=== PATIENT | male | born 1965 | race Caucasian/White ===

== ENCOUNTER 2017-02-23 02:13 | Emergency (ER) | payer SELFPAY ==
[2017-02-23 02:13] VITALS: BMI 28.5
[2017-02-23 02:26] VITALS: BP 147/96; PULSE 116; RESP 16; TEMP 98.7; O2SAT 96
--- NOTE | 2017-02-23 02:50 | ED PDOC ---
HPI: General Adult Time Seen by Provider: 02/23/17 02:29 Chief Complaint (Nursing): Chest Pain Chief Complaint (Provider): Palpitations History Per: Patient Onset/Duration Of Symptoms: Hrs (1.5) Current Symptoms Are (Timing): Still Present Severity: Moderate Additional History Per: Patient Additional Complaint(s): 51 y/o male complaining of palpitations that awoke him from sleep. He complains that he felt his heart was racing and his heartbeat felt stronger than normal. Patient denies chest pain, shortness of breath, diaphoresis, lightheadedness, or nausea. He has been unusually stressed recently due to his son's, mother's, and sister's health situations. Patient states that he does not drink, smoke, or use illicit drugs. Past Medical History Vital Signs: Last Vital Signs Temp 98.7 F 02/23/17 02:23 Pulse 116 H 02/23/17 02:23 Resp 16 02/23/17 02:23 BP 147/96 H 02/23/17 02:23 Pulse Ox 96 02/23/17 05:28 - Medical History PMH: Dementia, HTN, Hypercholesterolemia Denies: Chronic Kidney Disease - Surgical History Surgical History: No Surg Hx - Family History Family History: States: Unknown Family Hx - Social History Current smoker - smoking cessation education provided: No Ex-Smoker (has not smoked in the last 12 months): No Alcohol: None - Immunization History Hx Tetanus Toxoid Vaccination: No Hx Influenza Vaccination: No Hx Pneumococcal Vaccination: No - Home Medications Home Medications: Ambulatory Orders Medication Instructions Recorded Unobtainable [Unobtainable] 05/23/13 Unobtainable 11/24/15 - Allergies Allergies/Adverse Reactions: Allergies Allergy/AdvReac Type Severity Reaction Status Date / Time No Known Allergies Allergy Verified 11/06/14 18:38 Review of Systems ROS Statement: Except As Marked, All Systems Reviewed And Found Negative Cardiovascular: Positive for: Palpitations Physical Exam - Reviewed Nursing Documentation Reviewed: Yes Vital Signs Reviewed: Yes - Physical Exam Appears: Positive for: Well, Non-toxic, No Acute Distress Head Exam: Positive for: ATRAUMATIC, NORMAL INSPECTION, NORMOCEPHALIC Skin: Positive for: Normal Color, Warm, DRY Eye Exam: Positive for: EOMI, Normal appearance, PERRL ENT: Positive for: Normal ENT Inspection Neck: Positive for: Normal, Painless ROM Cardiovascular/Chest: Positive for: Regular Rate, Rhythm Respiratory: Positive for: CNT, Normal Breath Sounds Gastrointestinal/Abdominal: Positive for: Normal Exam, Bowel Sounds, Soft Back: Positive for: Normal Inspection Extremity: Positive for: Normal ROM Neurologic/Psych: Positive for: Alert, Oriented - Laboratory Results Result Diagrams: 02/23/17 02:57 02/23/17 02:57 - ECG ECG: Positive for: Interpreted By Me, Viewed By Me ECG Rhythm: Positive for: Normal QRS, Normal ST Segment, Sinus Tachycardia (101) . Negative for: ST/T Changes Interpretation Of Abn EK:23: Sinus tachycardia with rate of 101. No ST elevation. O2 Sat by Pulse Oximetry: 96 (RA) Pulse Ox Interpretation: Normal - Radiology X-Ray: Interpreted by Me, Viewed By Me X-Ray Interpretation: No Acute Disease Medical Decision Making Medical Decision Making: Impression: 51 y/o male with palpitations Plan: - Labs - EKG - CXR Labs reviewed and show alcohol level of 172, and low potassium. Previously, patient stated that he does not drink, smoke, or use illicit drugs. Otherwise labs were unremarkable for clinically significant findings. 05:00: patient given 20 mEu Potassium. Diagnosis: palpitations and alcohol abuse Condition: stable Scribe Attestation: Documented by Sherita Horner, acting as a scribe for Trip Toney MD Provider Scribe Attestation: All medical record entries made by the Scribe were at my direction and personally dictated by me. I have reviewed the chart and agree that the record accurately reflects my personal performance of the history, physical exam, medical decision making, and the department course for this patient. I have also personally directed, reviewed, and agree with the discharge instructions and disposition. Disposition - Clinical Impression Clinical Impression: Palpitations - Patient ED Disposition Is Patient to be Admitted: No Doctor Will See Patient In The: Office Counseled Patient/Family Regarding: Studies Performed, Diagnosis, Need For Followup - Disposition Disposition: Routine/Home Disposition Time: 05:27 Condition: STABLE Instructions: Palpitations (ED) Forms: 3LM (Azeri)
[2017-02-23 03:12] LABS: BASO % 0.3 % (0.0-2.0); EOS % 0.5 % (0.0-4.0); HEMATOCRIT 40.5 % (35.0-51.0); LYMPH # 4.2 K/uL (1.0-4.3); MEAN CELL VOLUME 102.4 fl (80.0-94.0); MEAN CORPUSCULAR HEMOGLOBIN 35.2 pg (27.0-31.0); MEAN CORPUSCULAR HGB CONC 34.4 g/dL (33.0-37.0); MEAN PLATELET VOLUME 10.1 fl (7.2-11.7); MONO # 1.1 K/uL (0.0-0.8); MONO % 11.6 % (0.0-10.0); NEUT # 4.2 K/uL (1.8-7.0); NEUT % 43.6 % (50.0-75.0); NRBC % 0.2 % (0.0-0.0); RED CELL DISTRIBUTION WIDTH 15.1 % (11.5-14.5); WHITE BLOOD COUNT 9.5 K/uL (4.8-10.8)
[2017-02-23 03:16] LABS: ALCOHOL SERUM 197 mg/dl (0-10); ALKALINE PHOSPHATASE 119 U/L (38-126); ALT/SGPT 65 U/L (21-72); AST/SGOT 128 U/L (17-59); BILIRUBIN,TOTAL 1.3 mg/dl (0.2-1.3); BLOOD UREA NITROGEN 7 mg/dl (9-20); CALCIUM 8.6 mg/dL (8.4-10.2); CARBON DIOXIDE 24 mmol/L (22-30); CHLORIDE 97 mmol/L (98-107); GFR AFRICAN-AMERICAN > 60; GLUCOSE,RANDOM 173 mg/dL (75-110); POTASSIUM 3.1 MMOL/L (3.6-5.0); SODIUM 139 mmol/l (132-148); TOTAL PROTEIN 8.4 G/DL (6.3-8.2)
[2017-02-23] MEDS ORDERED: Potassium Chloride 20 mEq ER Tab PO ONE (03:30)
[2017-02-23 06:09] LABS: PARTIAL THROMBOPLASTIN TIME 28.9 Seconds (25.6-37.1)
--- NOTE | 2017-02-23 08:25 | CARD ---
APPROVED REPORT EKG Measurement Heart [id number] 124P [id number] <Conclusion> Sinus tachycardia Otherwise normal ECG
--- NOTE | 2017-02-23 08:52 | RAD ---
HISTORY: palpitations COMPARISON: Portable chest 05/30/2013. FINDINGS: LUNGS: No active pulmonary disease. Improved history volume noted bilaterally. PLEURA: No significant pleural effusion identified, no pneumothorax apparent. CARDIOVASCULAR: Normal. OSSEOUS STRUCTURES: No significant abnormalities. VISUALIZED UPPER ABDOMEN: Normal. OTHER FINDINGS: None. IMPRESSION: No interval acute cardiopulmonary disease appreciated.
== END 2017-02-23 06:18 | disposition home or self-care (01) ==
LOC: H.ER 02:13
DX: R00.2 Palpitations (principal); E78.00 Pure hypercholesterolemia, unspecified; F03.90 Unspecified dementia, unspecified severity, without behavioral disturbance, psychotic disturbance, mood disturbance, and anxiety; F10.10 Alcohol abuse, uncomplicated; I10 Essential (primary) hypertension
CPT/HCPCS: 71010; 80053; 84484; 85025; 85610; 85730; 93005; 99282; G0480

== ENCOUNTER 2017-04-21 22:17 | Emergency (ER) | payer SELFPAY ==
[2017-04-21 22:17] VITALS: BMI 28.5
[2017-04-21] MEDS ORDERED: DiphenhydrAMINE 50 mg/ml Inj IVP STA (23:32)
[2017-04-21] MEDS ORDERED: Sodium Chloride 0.9% 1,000 ML IV STA (23:33)
[2017-04-21 23:44] LABS: BASO % 0.4 % (0.0-2.0); EOS % 0.5 % (0.0-4.0); HEMATOCRIT 42.1 % (35.0-51.0); LYMPH # 1.4 K/uL (1.0-4.3); LYMPH % 21.8 % (20.0-40.0); MEAN CELL VOLUME 103.8 fl (80.0-94.0); MEAN CORPUSCULAR HEMOGLOBIN 35.5 pg (27.0-31.0); MEAN CORPUSCULAR HGB CONC 34.2 g/dL (33.0-37.0); MEAN PLATELET VOLUME 8.8 fl (7.2-11.7); MONO # 0.9 K/uL (0.0-0.8); NEUT % 62.3 % (50.0-75.0); RED CELL DISTRIBUTION WIDTH 15.1 % (11.5-14.5); WHITE BLOOD COUNT 6.3 K/uL (4.8-10.8)
[2017-04-21 23:52] LABS: ALKALINE PHOSPHATASE 117 U/L (38-126); ALT/SGPT 46 U/L (21-72); AST/SGOT 72 U/L (17-59); BILIRUBIN,TOTAL 2.1 mg/dl (0.2-1.3); BLOOD UREA NITROGEN 12 mg/dl (9-20); CALCIUM 8.1 mg/dL (8.4-10.2); CARBON DIOXIDE 30 mmol/L (22-30); CHLORIDE 90 mmol/L (98-107); GFR AFRICAN-AMERICAN > 60; GLUCOSE,RANDOM 188 mg/dL (75-110); POTASSIUM 3.8 MMOL/L (3.6-5.0); SODIUM 129 mmol/l (132-148); TOTAL PROTEIN 8.4 G/DL (6.3-8.2)
--- NOTE | 2017-04-22 00:32 | ED PDOC ---
HPI: General Adult Time Seen by Provider: 04/21/17 23:00 Chief Complaint (Nursing): Abdominal Pain Chief Complaint (Provider): Abdominal Pain History Per: Patient History/Exam Limitations: no limitations Onset/Duration Of Symptoms: Days (x5) Current Symptoms Are (Timing): Still Present Additional Complaint(s): Tyson Zhang is a 51 year old male with no significant past medical history, who presents to the ED complaining of persistent hiccups x5 days. Patient states his hiccups began Thursday and have not gone away since. Also reports developing lower abdominal pain yesterday, along with a pulsating sensation in his neck and ears with the hiccupping. Denies chest pain, shortness of breath, nausea, and vomiting. Confirms normal stools. PMD: [facility] Provider Past Medical History Reviewed: Historical Data, Nursing Documentation, Vital Signs Vital Signs: Last Vital Signs Temp 97.9 F 04/21/17 22:45 Pulse 101 H 04/21/17 22:45 Resp 22 04/21/17 22:45 BP 181/96 H 04/21/17 22:45 Pulse Ox 97 04/22/17 01:43 - Medical History PMH: Dementia, HTN, Hypercholesterolemia Denies: Chronic Kidney Disease - Family History Family History: States: Unknown Family Hx - Immunization History Hx Tetanus Toxoid Vaccination: No Hx Influenza Vaccination: No Hx Pneumococcal Vaccination: No - Home Medications Home Medications: Ambulatory Orders Medication Instructions Recorded Baclofen [Lioresal] 5 mg PO TID PRN #20 tab 04/22/17 DiphenhydrAMINE [Benadryl] 50 mg PO BID PRN #20 cap 04/22/17 - Allergies Allergies/Adverse Reactions: Allergies Allergy/AdvReac Type Severity Reaction Status Date / Time No Known Allergies Allergy Verified 11/06/14 18:38 Review of Systems ROS Statement: Except As Marked, All Systems Reviewed And Found Negative Constitutional: Positive for: Other (persistent hiccups) ENT: Positive for: Ear Pain (pulsating) Cardiovascular: Negative for: Chest Pain Respiratory: Negative for: Shortness of Breath Gastrointestinal: Positive for: Abdominal Pain (lower). Negative for: Nausea, Vomiting, Diarrhea, Melena, Hematochezia Musculoskeletal: Positive for: Neck Pain (pulsating) Physical Exam - Reviewed Nursing Documentation Reviewed: Yes Vital Signs Reviewed: Yes - Physical Exam Appears: Positive for: Well, Non-toxic, No Acute Distress Head Exam: Positive for: ATRAUMATIC, NORMAL INSPECTION, NORMOCEPHALIC Skin: Positive for: Normal Color, Warm, DRY Eye Exam: Positive for: EOMI, Normal appearance, PERRL Neck: Positive for: Normal, Painless ROM Cardiovascular/Chest: Positive for: Regular Rate, Rhythm. Negative for: Murmur Respiratory: Positive for: Normal Breath Sounds. Negative for: Respiratory Distress Gastrointestinal/Abdominal: Positive for: Tenderness (mild lower abdominal tenderness) Back: Positive for: Normal Inspection. Negative for: L CVA Tenderness, R CVA Tenderness, Vertebral Tenderness Extremity: Positive for: Normal ROM. Negative for: Pedal Edema, Deformity Neurologic/Psych: Positive for: Alert, Oriented. Negative for: Motor/Sensory Deficits Comments: Patient has persistent hiccups - Laboratory Results Result Diagrams: 04/21/17 23:41 04/21/17 23:41 - ECG O2 Sat by Pulse Oximetry: 97 (RA) Pulse Ox Interpretation: Normal Medical Decision Making Medical Decision Making: Time: 23:32 Initial Impression: Intractable hiccups and abdominal wall/muscular strain Plan: --EKG --CMP --Troponin I --CBC w/ differential --X-Ray chest one view --Benadryl 50 mg IVP --Sodium Chloride 0.9% 1,000 ml IV --Reglan 10 mg IVP --Toradol 15 mg IVP --Urinalysis --Reevaluation Time: 23:55 --Chest X-Ray is negative 1AM After thorazine, hiccups stopped and patient felt much better. Gave prescription for baclofen and benadryl, told patient to f/u in clinic in 2 days for checkup. Results discussed. Return precautions discussed. Scribe Attestation: Documented by Andrés Boucher acting as a scribe for Merrill Tran MD. MD Knapp Attestation: All medical record entries made by the Aria were at my direction and personally dictated by me. I have reviewed the chart and agree that the record accurately reflects my personal performance of the history, physical exam, medical decision making, and the department course for this patient. I have also personally directed, reviewed, and agree with the discharge instructions and disposition. Disposition - Clinical Impression Clinical Impression: Hiccups - Disposition Referrals: [facility] [Outside] [facility] [Outside] Disposition Time: 01:30 Condition: IMPROVED Prescriptions: Baclofen [Lioresal] 5 mg PO TID PRN #20 tab PRN Reason: Hiccups DiphenhydrAMINE [Benadryl] 50 mg PO BID PRN #20 cap PRN Reason: Hiccups Instructions: Baclofen (By mouth), Hiccups (ED) Forms: Contractually (Maori)
[2017-04-22 01:29] LABS: RBC URINE 1 /hpf (0-3); URINE BACTERIA RARE (<OCC); URINE BILIRUBIN NEGATIVE (NEGATIVE); URINE BLOOD NEGATIVE (NEGATIVE); URINE COLOR YELLOW (YELLOW); URINE GLUCOSE (UA) NEG (Normal); URINE KETONE NEGATIVE (NEGATIVE); URINE LEUKOCYTE ESTERASE NEG Leu/uL (Negative); URINE PROTEIN NEGATIVE (NEGATIVE); WBC URINE 1 /hpf (0-5)
[2017-04-22 02:58] VITALS: BP 152/87; PULSE 96; RESP 18; TEMP 98.2; O2SAT 98
--- NOTE | 2017-04-22 08:18 | RAD ---
PROCEDURE: CHEST RADIOGRAPH, 1 VIEW HISTORY: hiccups, abd pain COMPARISON: Frontal chest 02/23/2017. FINDINGS: LUNGS: No acute infiltrate bilaterally. PLEURA: No pneumothorax or pleural fluid seen. CARDIOVASCULAR: Normal. OSSEOUS STRUCTURES: No significant abnormalities. VISUALIZED UPPER ABDOMEN: Normal. OTHER FINDINGS: None. IMPRESSION: No interval acute cardiopulmonary disease appreciated.
--- NOTE | 2017-04-22 23:45 | CARD ---
APPROVED REPORT EKG Measurement Heart [id number] <Conclusion> Normal sinus rhythm Anterior infarct, age undetermined Abnormal ECG
== END 2017-04-22 02:29 | disposition home or self-care (01) ==
LOC: H.ER 22:17
DX: R06.6 Hiccough (principal); E78.00 Pure hypercholesterolemia, unspecified; F03.90 Unspecified dementia, unspecified severity, without behavioral disturbance, psychotic disturbance, mood disturbance, and anxiety; I10 Essential (primary) hypertension
CPT/HCPCS: 71010; 80053; 81003; 84484; 85025; 93005; 96372; 96374; 96375; 99282; J1200; J1885; J2765; J3230; J7040

== ENCOUNTER 2017-06-20 19:44 | Inpatient (IN) | payer MEDICAID, OTHER ==
[2017-06-20 21:38] LABS: VENOUS BLOOD GAS PCO2 53 mmHg (40-60); VENOUS BLOOD GAS PO2 36 mm/Hg (30-55); VENOUS BLOOD PH 7.37 (7.32-7.43)
[2017-06-20 22:01] LABS: ALBUMIN 4.2 g/dL (3.5-5.0); ALT/SGPT 32 U/L (21-72); AST/SGOT 50 U/L (17-59); BLOOD UREA NITROGEN 8 mg/dl (9-20); CALCIUM 8.1 mg/dL (8.4-10.2); GFR AFRICAN-AMERICAN > 60; GFR NON-AFRICAN AMERICAN > 60; LIPASE 352 U/L (23-300); MAGNESIUM 1.4 MG/DL (1.6-2.3)
[2017-06-20 22:15] LABS: INR 1.1 (0.9-1.2); PARTIAL THROMBOPLASTIN TIME 31.8 Seconds (25.6-37.1); PROTHROMBIN TIME 12.4 Seconds (9.8-13.1)
[2017-06-20 22:22] LABS: BASO % 0.3 % (0.0-2.0); EOS % 0.4 % (0.0-4.0); HEMOGLOBIN 14.9 g/dL (12.0-18.0); LYMPH # 2.2 K/uL (1.0-4.3); MEAN CELL VOLUME 104.9 fl (80.0-94.0); MEAN CORPUSCULAR HEMOGLOBIN 35.7 pg (27.0-31.0); MEAN CORPUSCULAR HGB CONC 34.1 g/dL (33.0-37.0); MEAN PLATELET VOLUME 9.3 fl (7.2-11.7); MONO # 0.9 K/uL (0.0-0.8); MONO % 11.9 % (0.0-10.0); NEUT # 4.6 K/uL (1.8-7.0); NEUT % 59.4 % (50.0-75.0); NRBC % 0.1 % (0.0-0.0); RBC 4.17 Mil/uL (4.40-5.90); RED CELL DISTRIBUTION WIDTH 16.4 % (11.5-14.5); WHITE BLOOD COUNT 7.8 K/uL (4.8-10.8)
--- NOTE | 2017-06-20 22:42 | ED PDOC ---
HPI: Neurologic - General Time Seen by Provider: 06/20/17 20:09 Chief Complaint (Nursing): Psychiatric Evaluation Chief Complaint (Provider): alcohol withdrawal Source: patient Exam Limitations: clinical condition (Timeline may be unreliable) - History of Present Illness Timing/Duration: 24 hours Severity: moderate Episode Description: shakiness and anxiousness Associated Symptoms: insomnia, weakness, other (hiccups for 4 days) Allergies/Adverse Reactions: Allergies No Known Allergies Allergy (Verified 06/20/17 19:53) Home Medications: Ambulatory Orders Baclofen [Lioresal] 5 mg PO TID PRN #20 tab 04/22/17 DiphenhydrAMINE [Benadryl] 50 mg PO BID PRN #20 cap 04/22/17 Additional Complaint(s): History may be unreliable due to DTs. Specifically timeline of events inconsistent with actual dates/days. Pt reports he feels like he may be having DTs because he has had this before. Admits h/o alcohol abuse in form of episodic heavy binges. He reports heavy drinking "all weekend" with friends despite today being Thursday and then stopped the day before yesterday (?). He reports shakiness started yesterday and was unable to sleep all night because of this. Also reports that he has been having hiccups for 4 days, since Thursday? (despite Thursday was yesterday) but has had history of this in the past. Also reports that he is seeing "shadows" c/w symptoms of DTs he has had in the past. Reports mild URI symptoms as well. PMD None. Past Medical History Reviewed: Historical Data, Nursing Documentation, Vital Signs Vital Signs: Last Vital Signs Temp 98.2 F 06/20/17 19:53 Pulse 104 H 06/20/17 19:53 Resp 16 06/20/17 19:53 BP 158/97 H 06/20/17 19:53 Pulse Ox 98 06/20/17 19:53 - Medical History PMH: HTN, Hypercholesterolemia Denies: Chronic Kidney Disease - Surgical History Other surgeries: Ankle surgery - Family History Family History: States: Unknown Family Hx - Social History Current smoker - smoking cessation education provided: No Alcohol: > 2 Drinks/Day Drugs: Denies - Immunization History Hx Tetanus Toxoid Vaccination: No Hx Influenza Vaccination: No Hx Pneumococcal Vaccination: No - Home Medications Home Medications: Ambulatory Orders Medication Instructions Recorded Baclofen [Lioresal] 5 mg PO TID PRN #20 tab 04/22/17 DiphenhydrAMINE [Benadryl] 50 mg PO BID PRN #20 cap 04/22/17 - Allergies Allergies/Adverse Reactions: Allergies Allergy/AdvReac Type Severity Reaction Status Date / Time No Known Allergies Allergy Verified 06/20/17 19:53 Review of Systems ROS Statement: Except As Marked, All Systems Reviewed And Found Negative (and as per HPI) Constitutional: Positive for: Weakness, Malaise Cardiovascular: Positive for: Chest Pain Respiratory: Positive for: Cough Gastrointestinal: Positive for: Abdominal Pain. Negative for: Nausea, Vomiting Psych: Positive for: Anxiety, Psychosis Physical Exam - Reviewed Nursing Documentation Reviewed: Yes Vital Signs Reviewed: Yes - Physical Exam Appears: Positive for: Uncomfortable, In Acute Distress Head Exam: Positive for: ATRAUMATIC, NORMOCEPHALIC Skin: Positive for: Warm, Dry Eye Exam: Positive for: EOMI, PERRL ENT: Positive for: Other (tacky mucus membranes). Negative for: Pharyngeal Erythema, Tonsillar Exudate Neck: Positive for: Painless ROM, Supple Cardiovascular/Chest: Positive for: Regular Rate, Rhythm, Chest Non Tender. Negative for: Murmur Respiratory: Positive for: Other (actively hiccupping). Negative for: Accessory Muscle Use, Wheezing, Respiratory Distress Gastrointestinal/Abdominal: Positive for: Soft. Negative for: Tenderness, Mass , Distended, Guarding Back: Positive for: Normal Inspection. Negative for: Decreased ROM Extremity: Positive for: Normal ROM. Negative for: Deformity Lymphatic: Negative for: Adenopathy Neurologic/Psych: Positive for: Alert, machine biller II-XII (intact), Oriented (x2), Mood/ Affect (anxious mood anxious affect), Gait (steady). Negative for: Motor/ Sensory Deficits, Aphasia - Laboratory Results Result Diagrams: 06/20/17 22:05 06/20/17 21:16 - ECG ECG Rhythm: Positive for: Sinus Rhythm, Nonspecific Changes O2 Sat by Pulse Oximetry: 98 Pulse Ox Interpretation: Normal - Progress ED Course And Treament: 11pm Called to bedside by nurse for reports of increased confusion. Pt pulling monitor off and talking to himself. On evaluation, pt is speaking with no one in room. He reports that he is fine but unable to give history as why he is here like he did on initial evaluation. He mumbles answer and is difficult to understand. Redirected back to stretcher but then asked "Are we going to the store now?" Appears to have worsening symptoms of DTs. Additional Ativan ordered and pt to be admitted to ICU. DW Dr Crump Hospitalist for admission. - Critical Care Total Time (In Min): 30 Documented Critical Care: Time excludes all time spent performint seperately billable procedures Disposition - Clinical Impression Clinical Impression: Delirium tremens, Alcohol abuse - Disposition Disposition Time: 23:00 Condition: CRITICAL - Pt Status Changed To: Hospital Disposition Of: Inpatient - Admit Certification Admit to Inpatient:: After my assessment, the patient will require hospitalization for at least two midnights. This is because of the severity of symptoms shown, intensity of services needed, and/or the medical risk in this patient being treated as an outpatient. - POA Present On Arrival: Falls Or Trauma (risk of fall)
--- NOTE | 2017-06-20 23:04 | CP.PCM.HP ---
History of Present Illness - History of Present Illness History of Present Illness: PMD: Not on Staff Chief Complaint: Shakiness/confused The Patient was seen and examined in the ED HPI: The Hx is obtained after review of the medical records as the patient has mumbled speech and lethargic after receiving Ativan. He is a 51 years old male with hx of HTN, early dementia and alcohol abuse who came to the ED with one day of body shakiness, anxiety and hiccups. He stated that his last Alcohol drink was 2 days ago and he has been feeling very weak and seeing shadows. In the ED he became agitated and confused. he was given Ativan. PMH: HTN; HLD;Dementia; DM ?? PSH; Ankle surgery SH: No illegal substance use; Drinks alcohol heavily;Light smoker; Live with the family FH: States: Unknown Allergies: NKDA Medication: Reviewed Present on Admission - Present on Admission Any Indicators Present on Admission: No History of DVT/PE: No History of Uncontrolled Diabetes: No Urinary Catheter: No Decubitus Ulcer Present: No Review of Systems - Review of Systems Review of Systems: Review of system limited because the patient is confused Past Patient History - Past Medical History & Family History Past Medical History?: Yes - Past Social History Smoking Status: Light Smoker < 10 Cigarettes Daily Chewing Tobacco Use: No Cigar Use: No Alcohol: > 2 Drinks/Day Drugs: Denies, Inhalants Home Situation {Lives}: With Family - CARDIAC Hx Hypercholesterolemia: Yes Hx Hypertension: Yes - PULMONARY Hx Respiratory Disorders: No - NEUROLOGICAL Hx Dementia: Yes - HEENT Hx HEENT Problems: No - RENAL Hx Chronic Kidney Disease: No - ENDOCRINE/METABOLIC Hx Endocrine Disorders: Yes Hx Diabetes Mellitus Type 2: Yes - HEMATOLOGICAL/ONCOLOGICAL Hx Blood Disorders: No - INTEGUMENTARY Hx Dermatological Problems: No - MUSCULOSKELETAL/RHEUMATOLOGICAL Hx Musculoskeletal Disorders: No - GASTROINTESTINAL Hx Gastrointestinal Disorders: No - GENITOURINARY/GYNECOLOGICAL Hx Genitourinary Disorders: No - PSYCHIATRIC Hx Psychophysiologic Disorder: No Hx Substance Use: No - SURGICAL HISTORY Hx Surgeries: No - ANESTHESIA Hx Anesthesia: No Meds Allergies/Adverse Reactions: Allergies Allergy/AdvReac Type Severity Reaction Status Date / Time No Known Allergies Allergy Verified 06/20/17 19:53 Physical Exam - Constitutional Appears: No Acute Distress - Head Exam Head Exam: ATRAUMATIC, NORMAL INSPECTION, NORMOCEPHALIC - Eye Exam Eye Exam: EOMI, Normal appearance Pupil Exam: NORMAL ACCOMODATION - ENT Exam ENT Exam: Mucous Membranes Dry, Normal External Ear Exam - Neck Exam Neck exam: Positive for: Full Rom, Normal Inspection. Negative for: Lymphadenopathy, Tenderness - Respiratory Exam Respiratory Exam: Clear to Auscultation Bilateral. absent: Rales, Rhonchi, Wheezes - Cardiovascular Exam Cardiovascular Exam: REGULAR RHYTHM, RRR, +S1, +S2. absent: Gallop - GI/Abdominal Exam Additional comments: Obese, firm, non tender, no rebound tenderness, no viceromegaleas - Rectal Exam Rectal Exam: Deferred - Extremities Exam Extremities exam: Positive for: normal inspection. Negative for: joint swelling , pedal edema - Back Exam Back exam: NORMAL INSPECTION. absent: CVA tenderness (L), CVA tenderness (R) - Neurological Exam Additional comments: Patient with diffuse shakiness of the body, lethargic post Ativan intravenous, but attempting to get off of bed, mumbling, no facial droop, responds to painful stimuli. Uncoordinated movement of the upper and lower extremities. - Psychiatric Exam Psychiatric exam: Agitated, Anxious - Skin Skin Exam: Dry, Intact, Normal Color, Warm Results - Vital Signs Recent Vital Signs: Last Vital Signs Temp 98.2 F 06/20/17 19:53 Pulse 104 H 06/20/17 19:53 Resp 16 06/20/17 19:53 BP 158/97 H 06/20/17 19:53 Pulse Ox 98 06/20/17 22:50 - Labs Result Diagrams: 06/20/17 22:05 06/20/17 21:16 Labs: Laboratory Results - last 24 hr 06/20/17 06/20/17 06/20/17 21:10 21:16 21:16 WBC RBC Hgb Hct MCV MCH MCHC RDW Plt Count MPV Neut % (Auto) Lymph % (Auto) Roberts % (Auto) Eos % (Auto) Baso % (Auto) Neut # (Auto) Lymph # (Auto) Roberts # (Auto) Eos # (Auto) Baso # (Auto) PT 12.4 INR 1.1 APTT 31.8 pO2 VBG pH VBG pCO2 VBG HCO3 VBG Total CO2 VBG O2 Sat (Calc) VBG Base Excess VBG Potassium Glucose Lactate FiO2 Sodium 132 Potassium 3.6 Chloride 91 L Carbon Dioxide 30 Anion Gap 15 BUN 8 L Creatinine 0.8 Est GFR ( Amer) > 60 Est GFR (Non-Af Amer) > 60 Random Glucose 130 H Calcium 8.1 L Phosphorus 3.1 Magnesium 1.4 L Total Bilirubin 1.2 AST 50 ALT 32 Alkaline Phosphatase 96 Ammonia Total Protein 8.2 Albumin 4.2 Globulin 4.1 H Albumin/Globulin Ratio 1.0 Lipase 352 H Venous Blood Potassium Alcohol, Quantitative < 10 Blood Type AB POSITIVE Antibody Screen Negative BBK History Checked No verified bt 06/20/17 06/20/17 06/20/17 21:30 21:31 22:05 WBC 7.8 RBC 4.17 L Hgb 14.9 Hct 43.8 MCV 104.9 H MCH 35.7 H MCHC 34.1 RDW 16.4 H Plt Count 137 MPV 9.3 Neut % (Auto) 59.4 Lymph % (Auto) 28.0 Roberts % (Auto) 11.9 H Eos % (Auto) 0.4 Baso % (Auto) 0.3 Neut # (Auto) 4.6 Lymph # (Auto) 2.2 Roberts # (Auto) 0.9 H Eos # (Auto) 0.0 Baso # (Auto) 0.0 PT INR APTT pO2 36 VBG pH 7.37 VBG pCO2 53 VBG HCO3 27.2 VBG Total CO2 32.2 H VBG O2 Sat (Calc) 74.5 H VBG Base Excess 4.0 H VBG Potassium 3.7 Glucose 127 H Lactate 0.9 FiO2 21.0 Sodium 129.0 L Potassium Chloride 91.0 L Carbon Dioxide Anion Gap BUN Creatinine Est GFR ( Amer) Est GFR (Non-Af Amer) Random Glucose Calcium Phosphorus Magnesium Total Bilirubin AST ALT Alkaline Phosphatase Ammonia 24 Total Protein Albumin Globulin Albumin/Globulin Ratio Lipase Venous Blood Potassium 3.7 Alcohol, Quantitative Blood Type Antibody Screen BBK History Checked - Imaging and Cardiology Chest x-ray Status: Image reviewed by me Additional comment: No infiltrate CT scan - head Status: Image reviewed by me Additional comment: EXAM: CT Head Without Intravenous Contrast FINDINGS: Limited due to streak and motion artifact Brain: Mild volume loss No hemorrhage. No significant white matter disease. No edema. Ventricles: Unremarkable. No ventriculomegaly. Bones/joints: Unremarkable. No acute fracture. Soft tissues: Unremarkable. Sinuses: Unremarkable as visualized. No acute sinusitis. Mastoid air cells: Unremarkable as visualized. No mastoid effusion. IMPRESSION: No intracranial hemorrhage.Please see discussion above Assessment & Plan - Assessment and Plan (Free Text) Assessment: #. Alcohol withdrawal with Delirium Tremens #. HTN #. Hyperglycemia #. Hypomagnesi Plan: 51 years old male with hx of HTN, early dementia and alcohol abuse who came to the ED with one day of body shakiness, anxiety and hiccups. his last Alcohol drink was 2 days ago and he has been feeling very weak and seeing shadows. In the ED he became agitated and confused and was given Ativan. #. Alcohol withdrawal with Delirium Tremens CT Head : negative for Bleed and Ischemia - Banana bag which includes: Thiamine/ Folic Acid/ Multivitamin - IV Fluids - Librium - Ativan - Haldol PRN for delirium - 1:1 observation #. HTN - Clonidine - Follow blood pressures #. Hyperglycemia - HbA1c #. Hypomagnesemia - Replace with MgSO4 - follow Magnesium #. Stress ulcer Prophylaxis with Pepcid #. DVT Prophylaxis with Lovenox #.Code Status: Full - Date & Time Date: 06/20/17 Time: 23:04
[2017-06-21] MEDS ORDERED: Magnesium Sulfate 1 GM in Dextrose 5% In Water 50 ML IV ONE (02:03)
[2017-06-21 03:35] VITALS: BMI 31.3
[2017-06-21] MEDS: Potassium Chloride 10 MEQ in Dextrose 5%/0.9% NS 1,000 ML IV SCH (03:40)
[2017-06-21 07:02] LABS: HEMOGLOBIN 13.7 g/dL (12.0-18.0); MEAN CELL VOLUME 105.2 fl (80.0-94.0); MEAN CORPUSCULAR HEMOGLOBIN 35.6 pg (27.0-31.0); MEAN CORPUSCULAR HGB CONC 33.8 g/dL (33.0-37.0); RBC 3.84 Mil/uL (4.40-5.90); RED CELL DISTRIBUTION WIDTH 16.6 % (11.5-14.5); WHITE BLOOD COUNT 7.5 K/uL (4.8-10.8)
[2017-06-21 07:23] LABS: BLOOD UREA NITROGEN 8 mg/dl (9-20); CALCIUM 7.7 mg/dL (8.4-10.2); GFR AFRICAN-AMERICAN > 60; GFR NON-AFRICAN AMERICAN > 60
[2017-06-21] MEDS: Enoxaparin 40 mg Syringe SC SCH (08:40)
[2017-06-21] MEDS: Multivitamin With Minerals Tab PO SCH (08:40)
--- NOTE | 2017-06-21 09:38 | CT ---
PROCEDURE: CT HEAD WITHOUT CONTRAST. HISTORY: Confused state COMPARISON: None available. TECHNIQUE: Axial computed tomography images were obtained through the head/brain without intravenous contrast. Radiation dose: Total exam DLP = 1450.40 mGy-cm. This CT exam was performed using one or more of the following dose reduction techniques: Automated exposure control, adjustment of the mA and/or kV according to patient size, and/or use of iterative reconstruction technique. FINDINGS: HEMORRHAGE: No intracranial hemorrhage. BRAIN: Examination limited due to patient motion artifact. No mass effect or edema. No atrophy or chronic microvascular ischemic changes. VENTRICLES: Unremarkable. No hydrocephalus. CALVARIUM: Unremarkable. PARANASAL SINUSES: Unremarkable as visualized. No significant inflammatory changes. MASTOID AIR CELLS: Unremarkable as visualized. No inflammatory changes. OTHER FINDINGS: None. IMPRESSION: No intracranial mass, hemorrhage or evidence of acute infarct. Limited examination. Preliminary interpretation of this examination was reported by [facility] at 1:48 a.m. on 06/21/2017. There is concurrence of this report with the preliminary interpretation.
[2017-06-21 11:08] LABS: BARBITURATES, UR NEGATIVE (NEGATIVE); BENZODIAZEPINES, UR NEGATIVE (NEGATIVE); OPIATES, UR NEGATIVE (NEGATIVE); PHENCYCLIDINE, UR NEGATIVE (NEGATIVE)
--- NOTE | 2017-06-21 11:31 | RAD ---
HISTORY: DTs COMPARISON: 04/21/2017 FINDINGS: LUNGS: No active pulmonary disease. PLEURA: No significant pleural effusion identified, no pneumothorax apparent. CARDIOVASCULAR: Normal. OSSEOUS STRUCTURES: No significant abnormalities. VISUALIZED UPPER ABDOMEN: Normal. OTHER FINDINGS: None. IMPRESSION: No active disease.
--- NOTE | 2017-06-21 12:31 | CP.PCM.PN ---
Subjective - Date & Time of Evaluation Date of Evaluation: 06/21/17 Time of Evaluation: 11:00 - Subjective Subjective: Pt is on 1:1 episodes of agitation opens eyes with verbal stimuli however disoriented to place and time denies CP no SOB no abd pain Objective - Vital Signs/Intake and Output Vital Signs (last 24 hours): Temp Pulse Resp BP Pulse Ox 97.2 F L 95 H 29 H 125/93 H 96 06/21/17 00:38 06/21/17 08:39 06/21/17 06:00 06/21/17 08:39 06/21/17 06:00 Intake and Output: 06/21/17 06/21/17 06:59 18:59 Intake Total 475 Output Total 600 Balance -125 - Medications Medications: Current Medications Chlordiazepoxide (Librium) 25 mg PO Q6 [facility] Last Admin: 06/21/17 09:54 Dose: 25 mg Clonidine HCl (Catapres) 0.1 mg PO BID [facility] Last Admin: 06/21/17 08:39 Dose: 0.1 mg Enoxaparin Sodium (Lovenox) 40 mg SC DAILY [facility] PRN Reason: Protocol Last Admin: 06/21/17 08:40 Dose: 40 mg Famotidine (Pepcid) 20 mg PO DAILY [facility] Last Admin: 06/21/17 08:40 Dose: 20 mg Folic Acid (Folic Acid) 1 mg PO DAILY [facility] Last Admin: 06/21/17 08:40 Dose: 1 mg Potassium Chloride 10 meq/ (Dextrose/Sodium Chloride) 1,005 mls @ 100 mls/hr IV .Q10H3M [facility] Stop: 06/22/17 02:08 Last Admin: 06/21/17 03:40 Dose: 100 mls/hr Lorazepam (Ativan) 1 mg IVP Q4H PRN PRN Reason: Agitation Last Admin: 06/21/17 11:29 Dose: 1 mg Multivitamins/Minerals (Therapeutic-M Tab) 1 tab PO DAILY [facility] Last Admin: 06/21/17 08:40 Dose: 1 tab Ondansetron HCl (Zofran Inj) 4 mg IVP Q4 PRN PRN Reason: Nausea/Vomiting Thiamine HCl (Vitamin B1 Tab) 100 mg PO DAILY [facility] Last Admin: 06/21/17 08:40 Dose: 100 mg - Labs Labs: 06/21/17 06:00 06/21/17 06:00 PT 12.4 Seconds (9.8-13.1) 06/20/17 21:16 INR 1.1 (0.9-1.2) 06/20/17 21:16 APTT 31.8 Seconds (25.6-37.1) 06/20/17 21:16 - Constitutional Appears: Agitated, Confused - Head Exam Head Exam: NORMAL INSPECTION, NORMOCEPHALIC - Eye Exam Eye Exam: EOMI, Normal appearance, PERRL Pupil Exam: NORMAL ACCOMODATION - ENT Exam ENT Exam: Mucous Membranes Moist, Normal External Ear Exam - Neck Exam Neck Exam: Full ROM. absent: Meningismus - Cardiovascular Exam Cardiovascular Exam: REGULAR RHYTHM, +S1, +S2 - GI/Abdominal Exam GI & Abdominal Exam: Soft, Normal Bowel Sounds. absent: Tenderness - Extremities Exam Extremities Exam: Full ROM, Normal Capillary Refill. absent: Calf Tenderness, Joint Swelling, Pedal Edema - Back Exam Back Exam: Full ROM. absent: CVA tenderness (L), CVA tenderness (R) - Neurological Exam Neurological Exam: Alert, Awake Additional comments: oriented to person only moves all extremities - Psychiatric Exam Psychiatric exam: Agitated, Anxious - Skin Skin Exam: Dry, Normal Color, Warm Assessment and Plan - Assessment and Plan (Free Text) Assessment: 51 years old male with hx of HTN, early dementia and Alcohol abuse who came to the ED bec he was feeling tremulous , anxious and was having hiccups. His last Alcohol drink was 2 days ago and he has been feeling very weak and seeing shadows. In the ED he became agitated and confused and was given Ativan. 1. Alcohol withdrawal with Delirium Tremens CT Head : negative for Bleed and Ischemia - cont Banana bag which includes: Thiamine/ Folic Acid/ Multivitamin - IV Fluids - Librium RTC - Ativan prn for agitation, signs of withdrawal - Haldol PRN for delirium - 1:1 observation 2. HTN - cont Clonidine - Monitor blood pressures 3. Hyperglycemia - HbA1c 7.1 4. Hypomagnesemia - Replaced with MgSO4 IV - follow Magnesium #. Stress ulcer Prophylaxis with Pepcid #. DVT Prophylaxis with Lovenox
[2017-06-22] MEDS: Potassium Chloride 10 MEQ in Dextrose 5%/0.9% NS 1,000 ML IV SCH ×2 (02:56→02:58)
[2017-06-22 05:30] LABS: ALBUMIN 3.5 g/dL (3.5-5.0); ALT/SGPT 26 U/L (21-72); AST/SGOT 39 U/L (17-59); BLOOD UREA NITROGEN 8 mg/dl (9-20); CALCIUM 7.7 mg/dL (8.4-10.2); GFR AFRICAN-AMERICAN > 60; GFR NON-AFRICAN AMERICAN > 60; MAGNESIUM 1.9 MG/DL (1.6-2.3)
[2017-06-22 06:06] LABS: HEMOGLOBIN 13.1 g/dL (12.0-18.0); MEAN CELL VOLUME 105.2 fl (80.0-94.0); MEAN CORPUSCULAR HEMOGLOBIN 36.5 pg (27.0-31.0); MEAN CORPUSCULAR HGB CONC 34.7 g/dL (33.0-37.0); RBC 3.58 Mil/uL (4.40-5.90); RED CELL DISTRIBUTION WIDTH 16.2 % (11.5-14.5)
[2017-06-22 06:39] LABS: WHITE BLOOD COUNT 6.4 K/uL (4.8-10.8)
--- NOTE | 2017-06-22 07:29 | CARD ---
APPROVED REPORT EKG Measurement Heart [id number] <Conclusion> Normal sinus rhythm Anterior infarct, age undetermined Prolonged QT Abnormal ECG
[2017-06-22] MEDS: Multivitamin With Minerals Tab PO SCH (08:43)
[2017-06-22] MEDS: Enoxaparin 40 mg Syringe SC SCH (08:43)
--- NOTE | 2017-06-22 08:53 | PN ---
DATE: 06/21/2017 CRITICAL CARE PROGRESS NOTE SUBJECTIVE: The patient is in ICU, bed 433. Time spent 35 minutes. The patient is seen and evaluated at the bedside. Past medical, surgical and social history reviewed. Events since admission noted. Discussed with overnight hospitalist. A 51-year-old male with a history of hypertension, early dementia, and alcohol dependence presented to the Emergency Room on 06/20/2017, complaining of bodily shakiness, anxiety and hiccups. Reportedly, the last alcohol drink was 2 days prior to the admission. In ED, the patient was noted to be agitated and confused. Requiring Ativan injection, admitted to ICU for possible withdrawal symptoms/delirium tremens. PAST SURGICAL HISTORY: Includes some surgery. ALLERGIES: NONE DOCUMENTED. MEDICATIONS: Reviewed, include Librium 25 mg q. 6 hours, Catapres 0.1 mg b.i.d., Lovenox 40 subcu daily, Pepcid 20 mg daily, folic acid 1 mg daily, Ativan 1 mg IV q. 4 p.r.n., multivitamin tablet daily, Zofran 4 mg IV q. 4 p.r.n. daily, thiamine 100 mg p.o. daily. LABORATORY DATA: WBC 7.5, hemoglobin 13.7, hematocrit 40.4, platelet count of 136. PT 12.5, INR 1.1, PTT 31.8, lactate level 0.9. SMA-7; sodium 140, potassium 3.6, chloride 94, CO2 29, blood urea nitrogen 8, creatinine 0.8, glucose 180, hemoglobin A1c 7.1. Toxicology; alcohol level is 910. Urine drug screen negative. IMPRESSION AND PLAN: 1. Neurologic: Altered mental status/agitation suspected alcohol withdrawal/delirium tremens, history of alcohol dependence. 2. Pulmonary: No acute issues. 3. Cardiac: Remains normotensive. Tachycardia improved with IV hydration. 4. Gastrointestinal: No acute issues noted. 5. Renal: BUN and creatinine within normal range. No electrolyte abnormalities. Continue deep venous thrombosis and gastrointestinal prophylaxis. Gio King MD
--- NOTE | 2017-06-22 10:58 | CP.PCM.PN ---
<Trev Robertson - Last Filed: 06/22/17 16:25> Subjective - Date & Time of Evaluation Date of Evaluation: 06/22/17 Time of Evaluation: 09:55 - Subjective Subjective: 51 y/o M evaluated and examined by bedside. Pt reports feeling well. Pt afebrile , tolerating PO with NO acute events overnight. Pt denies headache, paresthesia , dizziness, CP, SOB, abdominal pain, nausea or tremor. Objective - Vital Signs/Intake and Output Vital Signs (last 24 hours): Temp Pulse Resp BP Pulse Ox 98.2 F 94 H 16 179/73 H 97 06/22/17 08:00 06/22/17 10:00 06/22/17 10:00 06/22/17 10:00 06/22/17 10:00 Intake and Output: 06/22/17 06/22/17 06:59 18:59 Intake Total 1300 580 Output Total 500 1 Balance 800 579 - Medications Medications: Current Medications Chlordiazepoxide (Librium) 25 mg PO Q6 [facility] Last Admin: 06/22/17 09:26 Dose: 25 mg Clonidine HCl (Catapres) 0.1 mg PO BID [facility] Last Admin: 06/22/17 08:44 Dose: 0.1 mg Enoxaparin Sodium (Lovenox) 40 mg SC DAILY [facility] PRN Reason: Protocol Last Admin: 06/22/17 08:43 Dose: 40 mg Famotidine (Pepcid) 20 mg PO DAILY [facility] Last Admin: 06/22/17 08:43 Dose: 20 mg Folic Acid (Folic Acid) 1 mg PO DAILY [facility] Last Admin: 06/22/17 08:43 Dose: 1 mg Lorazepam (Ativan) 1 mg IVP Q4H PRN PRN Reason: Agitation Last Admin: 06/21/17 17:15 Dose: 1 mg Multivitamins/Minerals (Therapeutic-M Tab) 1 tab PO DAILY [facility] Last Admin: 06/22/17 08:43 Dose: 1 tab Ondansetron HCl (Zofran Inj) 4 mg IVP Q4 PRN PRN Reason: Nausea/Vomiting Thiamine HCl (Vitamin B1 Tab) 100 mg PO DAILY [facility] Last Admin: 06/22/17 08:43 Dose: 100 mg - Labs Labs: 06/22/17 04:30 06/22/17 04:30 PT 12.4 Seconds (9.8-13.1) 06/20/17 21:16 INR 1.1 (0.9-1.2) 06/20/17 21:16 APTT 31.8 Seconds (25.6-37.1) 06/20/17 21:16 - Constitutional Appears: Well, No Acute Distress - Eye Exam Eye Exam: EOMI, Normal appearance - ENT Exam ENT Exam: Mucous Membranes Moist - Neck Exam Neck Exam: Full ROM. absent: Meningismus - Respiratory Exam Respiratory Exam: NORMAL BREATHING PATTERN - Cardiovascular Exam Cardiovascular Exam: REGULAR RHYTHM, +S1, +S2 - GI/Abdominal Exam GI & Abdominal Exam: Soft, Normal Bowel Sounds. absent: Tenderness - Extremities Exam Extremities Exam: Full ROM, Normal Inspection. absent: Pedal Edema - Neurological Exam Neurological Exam: Alert, Awake, Oriented x3 Additional comments: Unstable gait, pt with difficulty moving from sitting to standing position. Assessment and Plan - Assessment and Plan (Free Text) Assessment: 51 y/o M with a PMHx of HTN, early dementia and alcohol abuse for evaluation and management of Alcohol withdrawal syndrome. Last alcoholic drink 3 days ago. Plan: 1. Alcohol withdrawal with Delirium Tremens - CT Head : negative for Bleed and Ischemia - C/w Thiamine/ Folic Acid/ Multivitamin - IV Fluids at maintenance - Zofran PRN - 1:1 observation - F/U Physical therapy recommendations. 2. Unstable gait - PT evaluation. - Fall precautions 3. HTN - C/w Clonidine - Monitor blood pressures 4. Hyperglycemia - HbA1c 7.1 5. Hypomagnesemia - Resolved. - Replaced with MgSO4 IV. 6. Stress Ulcer Prophylaxis - Pepcid 7. DVT Prophylaxis - Lovenox <Marlene Segovia - Last Filed: 06/22/17 16:47> Objective - Vital Signs/Intake and Output Vital Signs (last 24 hours): Temp Pulse Resp BP Pulse Ox 98.7 F 81 18 160/81 H 95 06/22/17 16:25 06/22/17 16:36 06/22/17 16:25 06/22/17 16:36 06/22/17 16:25 Intake and Output: 06/22/17 06/22/17 06:59 18:59 Intake Total 1300 1500 Output Total 500 1 Balance 800 1499 - Medications Medications: Current Medications Chlordiazepoxide (Librium) 25 mg PO Q6 [facility] Last Admin: 06/22/17 16:36 Dose: 25 mg Clonidine HCl (Catapres) 0.1 mg PO BID [facility] Last Admin: 06/22/17 16:36 Dose: 0.1 mg Enoxaparin Sodium (Lovenox) 40 mg SC DAILY [facility] PRN Reason: Protocol Last Admin: 06/22/17 08:43 Dose: 40 mg Famotidine (Pepcid) 20 mg PO DAILY [facility] Last Admin: 06/22/17 08:43 Dose: 20 mg Folic Acid (Folic Acid) 1 mg PO DAILY [facility] Last Admin: 06/22/17 08:43 Dose: 1 mg Lorazepam (Ativan) 1 mg IVP Q4H PRN PRN Reason: Agitation Last Admin: 06/21/17 17:15 Dose: 1 mg Multivitamins/Minerals (Therapeutic-M Tab) 1 tab PO DAILY [facility] Last Admin: 06/22/17 08:43 Dose: 1 tab Ondansetron HCl (Zofran Inj) 4 mg IVP Q4 PRN PRN Reason: Nausea/Vomiting Thiamine HCl (Vitamin B1 Tab) 100 mg PO DAILY [facility] Last Admin: 06/22/17 08:43 Dose: 100 mg - Labs Labs: 06/22/17 04:30 06/22/17 04:30 PT 12.4 Seconds (9.8-13.1) 06/20/17 21:16 INR 1.1 (0.9-1.2) 06/20/17 21:16 APTT 31.8 Seconds (25.6-37.1) 06/20/17 21:16 Attending/Attestation - Attestation I have personally seen and examined this patient.: Yes I have fully participated in the care of the patient.: Yes I have reviewed all pertinent clinical information, including history, physical exam and plan: Yes Notes (Text): Delirium Tremens - pt improving, confusion and hallucination resolved - alert, oriented - however pt is still tremulous - Physical therapy consulted- discussed with PT- gait still unstable, unsafe for discharge - will cont Librium RTC , Ativan prn, Thiamine -PT will come to re-eval pt in am
--- NOTE | 2017-06-23 08:28 | PN ---
CRITICAL CARE PROGRESS NOTE DATE: 06/22/2017 LOCATION: The patient in room 433. TIME SPENT: 35 minutes. The patient is seen and evaluated at the bedside. Past medical, surgical and social history reviewed. Events since admission noted. SUBJECTIVE: A 51-year-old male with history of hypertension, early dementia, alcohol dependence, admitted with alcohol withdrawal/DT, overnight uneventful. This morning alert, awake, follows commands appropriate. Tolerating , denies headache, shortness of breath, chest pain, palpitation. No abdominal pain or diarrhea. No dysuria. CURRENT MEDICATIONS: Include; Librium 25 mg q.6, Catapres 0.1 mg twice daily, Lovenox 40 subcu daily, Pepcid 20 mg daily, folic acid 1 mg daily, Ativan 1 mg IV q.4, multivitamin tablet 1 tablet daily, Zofran 4 mg IV q.4 p.r.n. and thiamine 100 mg p.o. daily. LABORATORY DATA: WBC 6.4, hemoglobin 13.1, hematocrit 37.7 and platelet count of 135. PT 12.4, INR 1.1 and PTT 31.8. ABG not available. SMA-7; sodium 137, potassium 3.7, chloride 101, CO2 of 26, blood urea nitrogen 8, creatinine 0.8, calcium 7.7, magnesium 1.9, total bilirubin 1.2, AST 39, ALT 26, alkaline phosphatase 85 and ammonia level is 24. Toxicology; alcohol level less than 10. Urine drug screen negative. Microbiology negative. Head CT negative. Chest x-ray; no acute infiltrate. IMPRESSION: Admitted with alcohol withdrawal/suspected DT currently remains stable. No further tremor or signs, symptoms of withdrawal noted to Pulmonary: No acute issues. Cardiac: Remains normotensive tachycardia improved with IV hydration. GI: No acute issues noted. Renal blood urea nitrogen and creatinine within normal limits. No electrolyte abnormalities. The patient can be transferred to regular floor. Gio King MD
[2017-06-23] MEDS: Enoxaparin 40 mg Syringe SC SCH (09:07)
[2017-06-23] MEDS: Multivitamin With Minerals Tab PO SCH (09:07)
--- NOTE | 2017-06-23 11:54 | RAD ---
HISTORY: r/o infiltrate COMPARISON: Chest radiograph dated 06/20/2017. TECHNIQUE: Chest PA and lateral FINDINGS: LUNGS: Prominence of the pulmonary vasculature may be secondary to AP technique and/or pulmonary vascular congestion. No focal consolidation. PLEURA: Stable elevation of the right hemidiaphragm. No significant pleural effusion identified. No pneumothorax apparent. CARDIOVASCULAR: Cardiomediastinal silhouette unchanged. OSSEOUS STRUCTURES: Unchanged. VISUALIZED UPPER ABDOMEN: Normal. OTHER FINDINGS: None. IMPRESSION: Prominence of the pulmonary vasculature may be secondary to AP technique and/or pulmonary vascular congestion. No focal consolidation or pleural effusion.
[2017-06-23 12:54] VITALS: BP 141/81; PULSE 82; RESP 12; TEMP 98.1; O2SAT 97
--- NOTE | 2017-06-23 13:27 | CP.PCM.DIS ---
Provider - Provider Date of Admission: 06/20/17 22:52 Attending physician: Mino Crump Primary care physician: Currently none. Consults: None. Time Spent in preparation of Discharge (in minutes): 30 Diagnosis - Discharge Diagnosis (1) Alcohol withdrawal Status: Acute Comment: - Pt extensively counseled on alcohol cessation, Wet Press Tender evaluated pt, information for assitance provided to pt. - Prescriptions for Folic acid, Thiamine and multivitamins provided to pt. (2) Delirium tremens Status: Acute Comment: - Resolved, pt extensively counseled on alcohol cessation. - Prescriptions provided to pt for Folic acid, Thiamaine and multivitamins. (3) Hypertension Status: Acute Comment: - Pt instructed to establish primary care with a PMD in order to be frequently evaluated. - Pt was initiated on Clonidine 0.1mg TID and Lisinopril 2.5mg daily. Prescriptions provided upon discharge. (4) Diabetes mellitus Status: Acute Comment: - HbA1c 7.1-elevated. - Pt initiated on Metformin 500mg daily, Rx provided uppon discharge. - Pt recommended to initiate lifestyle changes, follow a healthy diet and exercise regularly. F/U with PCP for further management. (5) Hyperlipidemia Status: Acute Comment: - Lifestyle changes recommended, follow a low-fat healthy diet. - F/U with PCP for re-evaluation. Hospital Course - Lab Results Lab Results: Micro Results 06/21/17 10:20 Nose MRSA Culture (Admit) - Final MRSA NOT DETECTED Most Recent Lab Values WBC 6.4 K/uL (4.8-10.8) 06/22/17 04:30 RBC 3.58 Mil/uL (4.40-5.90) L 06/22/17 04:30 Hgb 13.1 g/dL (12.0-18.0) 06/22/17 04:30 Hct 37.7 % (35.0-51.0) 06/22/17 04:30 MCV 105.2 fl (80.0-94.0) H 06/22/17 04:30 MCH 36.5 pg (27.0-31.0) H 06/22/17 04:30 MCHC 34.7 g/dL (33.0-37.0) 06/22/17 04:30 RDW 16.2 % (11.5-14.5) H 06/22/17 04:30 Plt Count 135 K/uL (130-400) 06/22/17 04:30 MPV 9.3 fl (7.2-11.7) 06/20/17 22:05 Neut % (Auto) 59.4 % (50.0-75.0) 06/20/17 22:05 Lymph % (Auto) 28.0 % (20.0-40.0) 06/20/17 22:05 [place] % (Auto) 11.9 % (0.0-10.0) H 06/20/17 22:05 Eos % (Auto) 0.4 % (0.0-4.0) 06/20/17 22:05 Baso % (Auto) 0.3 % (0.0-2.0) 06/20/17 22:05 Neut # (Auto) 4.6 K/uL (1.8-7.0) 06/20/17 22:05 Lymph # (Auto) 2.2 K/uL (1.0-4.3) 06/20/17 22:05 [place] # (Auto) 0.9 K/uL (0.0-0.8) H 06/20/17 22:05 Eos # (Auto) 0.0 K/uL (0.0-0.7) 06/20/17 22:05 Baso # (Auto) 0.0 K/uL (0.0-0.2) 06/20/17 22:05 PT 12.4 Seconds (9.8-13.1) 06/20/17 21:16 INR 1.1 (0.9-1.2) 06/20/17 21:16 APTT 31.8 Seconds (25.6-37.1) 06/20/17 21:16 pO2 36 mm/Hg (30-55) 06/20/17 21:31 VBG pH 7.37 (7.32-7.43) 06/20/17 21:31 VBG pCO2 53 mmHg (40-60) 06/20/17 21:31 VBG HCO3 27.2 mmol/L 06/20/17 21:31 VBG Total CO2 32.2 mmol/L (22-28) H 06/20/17 21:31 VBG O2 Sat (Calc) 74.5 % (40-65) H 06/20/17 21:31 VBG Base Excess 4.0 mmol/L (0.0-2.0) H 06/20/17 21:31 VBG Potassium 3.7 mmol/L (3.6-5.2) 06/20/17 21:31 Sodium 129.0 mmol/L (132-148) L 06/20/17 21:31 Chloride 91.0 mmol/L (98-107) L 06/20/17 21:31 Glucose 127 mg/dL (75-110) H 06/20/17 21:31 Lactate 0.9 mmol/L (0.7-2.1) 06/20/17 21:31 FiO2 21.0 % 06/20/17 21:31 Sodium 137 mmol/l (132-148) 06/22/17 04:30 Potassium 3.7 MMOL/L (3.6-5.0) 06/22/17 04:30 Chloride 101 mmol/L (98-107) 06/22/17 04:30 Carbon Dioxide 26 mmol/L (22-30) 06/22/17 04:30 Anion Gap 14 (10-20) 06/22/17 04:30 BUN 8 mg/dl (9-20) L 06/22/17 04:30 Creatinine 0.8 mg/dl (0.8-1.5) 06/22/17 04:30 Est GFR ( Amer) > 60 06/22/17 04:30 Est GFR (Non-Af Amer) > 60 06/22/17 04:30 POC Glucose (mg/dL) 129 mg/dL (65-110) H 06/20/17 22:46 Random Glucose 128 mg/dL (75-110) H 06/22/17 04:30 Hemoglobin A1c 7.1 % (4.2-6.5) H 06/21/17 06:00 Calcium 7.7 mg/dL (8.4-10.2) L 06/22/17 04:30 Phosphorus 3.1 mg/dl (2.5-4.5) 06/20/17 21:16 Magnesium 1.9 MG/DL (1.6-2.3) 06/22/17 04:30 Total Bilirubin 1.2 mg/dl (0.2-1.3) 06/22/17 04:30 AST 39 U/L (17-59) 06/22/17 04:30 ALT 26 U/L (21-72) 06/22/17 04:30 Alkaline Phosphatase 85 U/L (38-126) 06/22/17 04:30 Ammonia 24 umo/L (16-60) 06/20/17 21:30 Total Protein 7.1 G/DL (6.3-8.2) 06/22/17 04:30 Albumin 3.5 g/dL (3.5-5.0) 06/22/17 04:30 Globulin 3.6 gm/dL (2.2-3.9) 06/22/17 04:30 Albumin/Globulin Ratio 1.0 (1.0-2.1) 06/22/17 04:30 Triglycerides 124 mg/DL (0-149) 06/23/17 09:00 Cholesterol 190 mg/dL (0-199) 06/23/17 09:00 LDL Cholesterol Direct 140 mg/dL (0-129) H 06/23/17 09:00 HDL Cholesterol 28 MG/DL (30-70) L 06/23/17 09:00 Lipase 352 U/L (23-300) H 06/20/17 21:16 TSH 3rd Generation 0.81 mIU/ML (0.46-4.68) 06/23/17 09:00 Venous Blood Potassium 3.7 mmol/L (3.6-5.2) 06/20/17 21:31 Urine Opiates Screen Negative (NEGATIVE) 06/21/17 10:20 Urine Methadone Screen Negative (NEGATIVE) 06/21/17 10:20 Ur Barbiturates Screen Negative (NEGATIVE) 06/21/17 10:20 Ur Phencyclidine Scrn Negative (NEGATIVE) 06/21/17 10:20 Ur Amphetamines Screen Negative (NEGATIVE) 06/21/17 10:20 U Benzodiazepines Scrn Negative (NEGATIVE) 06/21/17 10:20 U Oth Cocaine Metabols Negative (NEGATIVE) 06/21/17 10:20 U Cannabinoids Screen Negative (NEGATIVE) 06/21/17 10:20 Alcohol, Quantitative < 10 mg/dl (0-10) 06/20/17 21:16 Blood Type AB POSITIVE 06/20/17 21:10 Blood Type Confirm AB POSITIVE 06/20/17 21:41 Antibody Screen Negative 02/10/18 21:10 BBK History Checked No verified bt 06/20/17 21:10 - Hospital Course Hospital Course: 51 y/o M with a PMHx of alcoholism, Delirium Tremens, HTN and DM 2 was admitted for management of alcoholic withdrawal syndrome. - Pt was stabilized by proving IV fluids, multivitamins, folic acid, thiamine, Clonidine, Librium and Ativan. - CT of head showed NO intra-cranial hemorrhage. - Pt had gait imbalance, was evaluated but PT and progressively improved. - HbA1c 7.1-elevated, Lipid panel showed a LDL 140-high and HDL 28-low. TSH 0.81 -normal. Today, pt reported feeling well, was stable, afebrile, tolerating PO. Pt was discharged home with prescriptions for Metformin, Lisinopril, Clonidine, Folic acid and thiamine. Pt instructed to establish primary care with a PMD. Pt was counseled for alcoholic cessation and provided with information for assistance. - Date & Time of H&P Date of H&P: 06/20/17 Time of H&P: 23:14 Discharge Exam - Head Exam Head Exam: NORMAL INSPECTION, NORMOCEPHALIC - Eye Exam Eye Exam: EOMI, Normal appearance - ENT Exam ENT Exam: Mucous Membranes Moist - Neck Exam Neck exam: Full Rom - Respiratory Exam Respiratory Exam: Clear to PA & Lateral, NORMAL BREATHING PATTERN, UNREMARKABLE - Cardiovascular Exam Cardiovascular Exam: REGULAR RHYTHM, +S1, +S2 - GI/Abdominal Exam GI & Abdominal Exam: Normal Bowel Sounds, Soft. absent: Tenderness - Extremities Exam Extremities exam: full ROM - Neurological Exam Neurological exam: Alert, Normal Gait, Oriented x3 - Psychiatric Exam Psychiatric exam: Normal Mood Discharge Plan - Discharge Medications Prescriptions: cloNIDine [Catapres] 0.1 mg PO TID #90 tab Folic Acid 1 mg PO DAILY #30 tab Lisinopril [Zestril] 2.5 mg PO DAILY #30 tab metFORMIN [glucOPHAGE] 500 mg PO DAILY #30 tab Multimineral/Multivitamin [Therapeutic-M Tab] 1 tab PO DAILY #30 tab Thiamine [Vitamin B1 Tab] 100 mg PO DAILY #30 tab - Follow Up Plan Condition: CRITICAL Disposition: HOME/ ROUTINE Instructions: Diabetes Mellitus Type 2 in Adults (GEN), Chronic Hypertension ( DC), Alcohol Withdrawal (DC), Alcohol Dependence (GEN) Additional Instructions: Please establish primary care with a PMD within 1 week. Continue medications as directed. Avoid alcohol intake. Referrals: [facility] [place] [Outside] FAMILY PROVIDER,NO [Primary Care Provider] -
== END 2017-06-23 13:15 | disposition home or self-care (01) | DRG 897 ==
LOC: H.ER 19:44 → H.ICU/CCU 22:52
PROVIDERS: ADMIT Internal Medicine; ATTEND Internal Medicine
DX: F10.231 Alcohol dependence with withdrawal delirium (principal); E11.65 Type 2 diabetes mellitus with hyperglycemia; F03.90 Unspecified dementia, unspecified severity, without behavioral disturbance, psychotic disturbance, mood disturbance, and anxiety; I10 Essential (primary) hypertension; F17.210 Nicotine dependence, cigarettes, uncomplicated; F41.9 Anxiety disorder, unspecified; E78.5 Hyperlipidemia, unspecified; E83.42 Hypomagnesemia; E78.00 Pure hypercholesterolemia, unspecified; R26.81 Unsteadiness on feet; G47.00 Insomnia, unspecified; Z79.84 Long term (current) use of oral hypoglycemic drugs

== ENCOUNTER 2017-08-11 20:51 | Inpatient (IN) | payer MEDICAID ==
[2017-08-11 20:52] VITALS: BMI 31.3
[2017-08-11] MEDS ORDERED: diaZEpam 10 mg/2 ml Inj IM STA (22:47)
--- NOTE | 2017-08-11 22:51 | ED PDOC ---
HPI: General Adult Time Seen by Provider: 08/11/17 22:20 Chief Complaint (Nursing): ENT Problem Chief Complaint (Provider): hiccups History Per: Patient History/Exam Limitations: no limitations Onset/Duration Of Symptoms: Days (4) Current Symptoms Are (Timing): Still Present Additional Complaint(s): 51 y/o male presents for evaluation of persistent hiccups x 4 days. Associated discomfort to throat with the spasms. Patient was told by his girlfriend that the hiccups do not occur during sleep. Patient states he had similar symptoms 2 months ago and was given medication here which helped; states he was admitted at that time for alcohol withdrawal due binge-drinking. Denies fever, nausea/ vomiting, headache, dizziness, cough, chest pain, shortness of breath, palpitations, abdominal pain. Admits to drinking 2-3 beers daily the last few days. Patient has been noncompliant with his medications due to monetary issues. Past Medical History Reviewed: Historical Data, Nursing Documentation, Vital Signs Vital Signs: Last Vital Signs Temp 98.7 F 08/11/17 21:04 Pulse 90 08/12/17 01:44 Resp 18 08/12/17 01:44 BP 141/86 08/12/17 02:47 Pulse Ox 98 08/12/17 03:29 - Medical History PMH: Dementia, Diabetes, HTN, Hypercholesterolemia Denies: Chronic Kidney Disease - Family History Family History: States: Unknown Family Hx - Immunization History Hx Tetanus Toxoid Vaccination: No Hx Influenza Vaccination: No Hx Pneumococcal Vaccination: No - Home Medications Home Medications: Ambulatory Orders Medication Instructions Recorded No Known Home Med 08/12/17 - Allergies Allergies/Adverse Reactions: Allergies Allergy/AdvReac Type Severity Reaction Status Date / Time No Known Allergies Allergy Verified 08/12/17 05:30 Review of Systems ROS Statement: Except As Marked, All Systems Reviewed And Found Negative ENT: Positive for: Other (hiccups) Physical Exam - Reviewed Nursing Documentation Reviewed: Yes Vital Signs Reviewed: Yes - Physical Exam Appears: Positive for: Well, Non-toxic, Uncomfortable (actively hiccuping) Head Exam: Positive for: ATRAUMATIC, NORMAL INSPECTION, NORMOCEPHALIC Skin: Positive for: Normal Color Eye Exam: Positive for: Normal appearance ENT: Positive for: Normal ENT Inspection Cardiovascular/Chest: Positive for: Regular Rate, Rhythm Respiratory: Positive for: Normal Breath Sounds Gastrointestinal/Abdominal: Positive for: Normal Exam Back: Positive for: Normal Inspection Extremity: Positive for: Normal ROM Neurologic/Psych: Positive for: Alert, Oriented - Laboratory Results Result Diagrams: 08/11/17 23:00 08/11/17 23:00 - ECG ECG: Positive for: Viewed By Me (reviewed by ED attending) ECG Rhythm: Positive for: Sinus Rhythm O2 Sat by Pulse Oximetry: 98 Pulse Ox Interpretation: Normal - Radiology X-Ray: Viewed By Me X-Ray Interpretation: No Acute Disease - Progress ED Course And Treament: labs, ekg, chest xray, valium IV fluids given for elevated blood glucose, PO potassium given for 3.2 level On re-eval, patient still with hiccups; Thorazine IM ordered On re-eval, patient states no improvement, hiccups still noted. Second dose Thorazine IM ordered 5:15 Patient states no improvement, hiccups still noted. Case discussed with Dr. Short, will place in observation med/surg for intractable hiccups Case discussed with Dr. Mcmahan, medical service on-call, for admission. Disposition - Clinical Impression Clinical Impression: Hyperglycemia, Intractable hiccups - Disposition Disposition Time: 05:30 Condition: FAIR
[2017-08-11 23:10] LABS: BASO # 0.1 K/uL (0.0-0.2); BASO % 0.8 % (0.0-2.0); EOS % 0.5 % (0.0-4.0); HEMOGLOBIN 14.5 g/dL (12.0-18.0); LYMPH # 3.4 K/uL (1.0-4.3); LYMPH % 41.6 % (20.0-40.0); MEAN CELL VOLUME 106.4 fl (80.0-94.0); MEAN CORPUSCULAR HEMOGLOBIN 36.5 pg (27.0-31.0); MEAN CORPUSCULAR HGB CONC 34.3 g/dL (33.0-37.0); MEAN PLATELET VOLUME 9.5 fl (7.2-11.7); MONO # 0.9 K/uL (0.0-0.8); MONO % 10.8 % (0.0-10.0); NEUT # 3.7 K/uL (1.8-7.0); NEUT % 46.3 % (50.0-75.0); NRBC % 0.1 % (0.0-0.0); RBC 3.98 Mil/uL (4.40-5.90); RED CELL DISTRIBUTION WIDTH 16.2 % (11.5-14.5); WHITE BLOOD COUNT 8.1 K/uL (4.8-10.8)
[2017-08-11 23:20] LABS: ALB/GLOB RATIO 0.9 (1.0-2.1); ALBUMIN 3.8 g/dL (3.5-5.0); ALT/SGPT 41 U/L (21-72); AST/SGOT 46 U/L (17-59); BLOOD UREA NITROGEN 4 mg/dl (9-20); GFR AFRICAN-AMERICAN > 60; GFR NON-AFRICAN AMERICAN > 60
[2017-08-11] MEDS ORDERED: Sodium Chloride 0.9% 1,000 ML IV STA (23:32)
[2017-08-11] MEDS ORDERED: Potassium Chloride 20 mEq ER Tab PO ONE (23:32)
--- NOTE | 2017-08-12 09:05 | RAD ---
HISTORY: hiccups COMPARISON: 06/23/2017 TECHNIQUE: Chest PA and lateral FINDINGS: LUNGS: No active pulmonary disease. PLEURA: No significant pleural effusion identified. No pneumothorax apparent. CARDIOVASCULAR: Normal. OSSEOUS STRUCTURES: No significant abnormalities. VISUALIZED UPPER ABDOMEN: Normal. OTHER FINDINGS: The asymmetrically elevated right hemidiaphragm is stable appearance IMPRESSION: No interval acute cardiopulmonary pathology. Asymmetrically elevated right hemidiaphragm similar-appearing -nonspecific finding
--- NOTE | 2017-08-12 11:24 | CARD ---
APPROVED REPORT EKG Measurement Heart [id number] <Conclusion> Normal sinus rhythm Cannot rule out Anterior infarct, age undetermined Abnormal ECG
--- NOTE | 2017-08-12 13:40 | CP.PCM.HP ---
History of Present Illness - History of Present Illness History of Present Illness: CC{ Hiccups. 51 y/o F, Long Hx of alcohol abuse, came to ER [facility] to be evaluated for Intractable Hiccups, onset 4 days [employer] with no relief., no associated cough/ SOB or CP. Worsening symptom: Throat discomfort with spasm. Aggravated factor: Non in compliance with medications due to financial status. Pt denied: Fever, chills, n/v/d, abdominal pain, CP, palpitations, SOB, cough, urinary symptoms, sick contact. CXR: No active pulmonary disease. EKG: Cannot rule out anterior infarct, age undetermined. Present on Admission - Present on Admission Any Indicators Present on Admission: No Review of Systems - Constitutional Constitutional: Other (negative) - EENT Eyes: Requires Corrective Lenses Ears: Other (negative) Nose/Mouth/Throat: Other (Throat disconfort.) - Cardiovascular Cardiovascular: Other (negative) - Respiratory Respiratory: Other (Hiccups) - Gastrointestinal Gastrointestinal: Other (negative) - Genitourinary Genitourinary: Other (negative) - Musculoskeletal Musculoskeletal: Other (negative) - Integumentary Integumentary: Other (negative) - Neurological Neurological: Other (negative) - Psychiatric Psychiatric: Anxiety - Endocrine Endocrine: Other (negative) - Hematologic/Lymphatic Hematologic: Other (negative) Past Patient History - Past Medical History & Family History Past Medical History?: Yes Pertinent Family History: Unknown - Past Social History Smoking Status: Light Smoker < 10 Cigarettes Daily Alcohol: > 2 Drinks/Day Drugs: Denies Home Situation {Lives}: With Family - CARDIAC Hx Cardiac Disorders: Yes (HTN, high cholesterol) - PULMONARY Hx Respiratory Disorders: No - NEUROLOGICAL Hx Neurological Disorder: Yes Hx Dementia: Yes - HEENT Hx HEENT Problems: No - RENAL Hx Chronic Kidney Disease: No - ENDOCRINE/METABOLIC Hx Endocrine Disorders: Yes (DM) - HEMATOLOGICAL/ONCOLOGICAL Hx Blood Disorders: No - INTEGUMENTARY Hx Dermatological Problems: No - MUSCULOSKELETAL/RHEUMATOLOGICAL Hx Musculoskeletal Disorders: No - GASTROINTESTINAL Hx Gastrointestinal Disorders: No - GENITOURINARY/GYNECOLOGICAL Hx Genitourinary Disorders: No - PSYCHIATRIC Hx Psychophysiologic Disorder: No Hx Substance Use: No - SURGICAL HISTORY Hx Surgeries: No - ANESTHESIA Hx Anesthesia: No Meds Allergies/Adverse Reactions: Allergies Allergy/AdvReac Type Severity Reaction Status Date / Time No Known Allergies Allergy Verified 08/12/17 05:30 Physical Exam - Constitutional Appears: Chronically Ill - Head Exam Head Exam: NORMAL INSPECTION - Eye Exam Eye Exam: PERRL - ENT Exam ENT Exam: Normal Exam - Neck Exam Neck exam: Positive for: Normal Inspection - Respiratory Exam Respiratory Exam: NORMAL BREATHING PATTERN - Cardiovascular Exam Cardiovascular Exam: REGULAR RHYTHM - GI/Abdominal Exam GI & Abdominal Exam: Normal Bowel Sounds, Soft - Extremities Exam Extremities exam: Positive for: normal inspection - Back Exam Back exam: NORMAL INSPECTION - Neurological Exam Neurological exam: Alert, Oriented x3 Additional comments: Obeys commands. - Psychiatric Exam Psychiatric exam: Anxious - Skin Skin Exam: Warm Results - Vital Signs Recent Vital Signs: Last Vital Signs Temp 98.0 F 08/12/17 09:31 Pulse 97 H 08/12/17 09:31 Resp 17 08/12/17 09:31 BP 121/60 08/12/17 09:31 Pulse Ox 98 08/12/17 06:27 reviewed J.POlesya - Labs Result Diagrams: 08/11/17 23:00 08/11/17 23:00 Labs: Laboratory Results - last 24 hr 08/11/17 08/11/17 08/12/17 23:00 23:00 03:18 WBC 8.1 RBC 3.98 L Hgb 14.5 Hct 42.3 MCV 106.4 H MCH 36.5 H MCHC 34.3 RDW 16.2 H Plt Count 107 L D MPV 9.5 Neut % (Auto) 46.3 L Lymph % (Auto) 41.6 H Lipscomb % (Auto) 10.8 H Eos % (Auto) 0.5 Baso % (Auto) 0.8 Neut # (Auto) 3.7 Lymph # (Auto) 3.4 Lipscomb # (Auto) 0.9 H Eos # (Auto) 0.0 Baso # (Auto) 0.1 Sodium 138 Potassium 3.2 L Chloride 94 L Carbon Dioxide 30 Anion Gap 17 BUN 4 L Creatinine 0.7 L Est GFR ( Amer) > 60 Est GFR (Non-Af Amer) > 60 POC Glucose (mg/dL) 247 H Random Glucose 341 H Calcium 8.0 L Total Bilirubin 0.9 AST 46 ALT 41 Alkaline Phosphatase 116 Total Protein 8.0 Albumin 3.8 Globulin 4.2 H Albumin/Globulin Ratio 0.9 L 08/12/17 09:35 WBC RBC Hgb Hct MCV MCH MCHC RDW Plt Count MPV Neut % (Auto) Lymph % (Auto) Lipscomb % (Auto) Eos % (Auto) Baso % (Auto) Neut # (Auto) Lymph # (Auto) Lipscomb # (Auto) Eos # (Auto) Baso # (Auto) Sodium Potassium Chloride Carbon Dioxide Anion Gap BUN Creatinine Est GFR ( Amer) Est GFR (Non-Af Amer) POC Glucose (mg/dL) 246 H Random Glucose Calcium Total Bilirubin AST ALT Alkaline Phosphatase Total Protein Albumin Globulin Albumin/Globulin Ratio reviewed J.P. - EKG Data EKG comments: reviewed J.P. - Imaging and Cardiology Chest x-ray Status: Report reviewed by me (Darshan.) Assessment & Plan (1) Intractable hiccups Status: Acute Priority: High (2) Diabetes mellitus with hyperglycemia Status: Acute Priority: High - Assessment and Plan (Free Text) Plan: Hgb A1C, Continue DM diet, Thorazine, start Diovan 160 mg. Cardiology consult. - Date & Time Date: 08/12/17 Time: 12:40
[2017-08-13] MEDS: Insulin Regular 100 units/ml SC SCH ×5 (00:55→22:02)
[2017-08-13 07:44] LABS: ALB/GLOB RATIO 0.8 (1.0-2.1); ALBUMIN 3.4 g/dL (3.5-5.0); ALT/SGPT 40 U/L (21-72); AST/SGOT 45 U/L (17-59); BLOOD UREA NITROGEN 4 mg/dl (9-20); CALCIUM 7.9 mg/dL (8.4-10.2); GFR AFRICAN-AMERICAN > 60; GFR NON-AFRICAN AMERICAN > 60; HDL CHOLESTEROL 35 MG/DL (30-70)
[2017-08-13 07:48] LABS: HEMOGLOBIN 14.2 g/dL (12.0-18.0); MEAN CELL VOLUME 105.9 fl (80.0-94.0); MEAN CORPUSCULAR HEMOGLOBIN 36.8 pg (27.0-31.0); MEAN CORPUSCULAR HGB CONC 34.8 g/dL (33.0-37.0); RBC 3.85 Mil/uL (4.40-5.90); RED CELL DISTRIBUTION WIDTH 16.5 % (11.5-14.5); WHITE BLOOD COUNT 5.2 K/uL (4.8-10.8)
[2017-08-13 07:55] LABS: LDL CHOLESTEROL 129 mg/dL (0-129)
[2017-08-13 07:56] LABS: T4 9.14 ug/dl (5.5-11.0)
[2017-08-13] MEDS: Potassium Chloride 20 mEq ER Tab PO SCH (09:32)
[2017-08-13] MEDS ORDERED: Metoprolol 1 mg/ml Inj IVP STA (11:25)
--- NOTE | 2017-08-13 11:49 | PCM.RRT ---
<Ricardo Palomino - Last Filed: 08/13/17 11:45> Plan - Assessment of Findings&Treatment Plan [employer] Time: 11:17 [employer] Location: [facility] [employer] Arrival: 11:17 [employer] Reason: Sinus Tachycardia S: Pt was noted to have tachycardia of 121 bpm with elevated bp of 179/109 O: [employer] Vitals: T:99.9 BP: 179/109 HR: 121 General: AAOX3 Cardiac: S1S2 Resp: clear bilaterally Abdo: soft, non tender [employer] intervention: Lopressor 5 mg IV STAT; 25 mg PO; ASA 325 MG stat EKG troponin A/P: 51 yo M with hypertention and sinus tachycardia [employer] Outcome: stable [employer] end: 11:35 [employer] Leader: Dr. Rubalcava [employer] residents: Ricardo Palomino MD PGY1; Ashley Mercado DO PGY3 <Liam Rubalcava - Last Filed: 08/13/17 12:06> Plan - Assessment of Findings&Treatment Plan ATTENDING ATTESTATION: Patient was seen and examined. I discussed the case with the resident and agree with the findings and plan as documented in the residents note. In addition: Blood cultures x 2, urinalysis, urine culture were ordered as soon after the [employer] patient spiked low grade fever of 100.5 Patient's vitals improved to HR 104, SBP in 140's after Lopressor 5 mg Patient HD stable D-dimer and troponin ordered
--- NOTE | 2017-08-13 17:23 | CP.PCM.PN ---
Subjective - Date & Time of Evaluation Date of Evaluation: 08/13/17 Time of Evaluation: 09:15 - Subjective Subjective: F/U Hiccups. Objective - Vital Signs/Intake and Output Vital Signs (last 24 hours): Temp Pulse Resp BP Pulse Ox 97.9 F 93 H 18 147/84 97 08/13/17 16:10 08/13/17 16:10 08/13/17 16:10 08/13/17 16:10 08/13/17 16:10 - Medications Medications: Current Medications Chlorpromazine (Thorazine) 25 mg IM Q6 PRN PRN Reason: Hiccups Last Admin: 08/13/17 15:51 Dose: 25 mg Insulin Human Regular (Humulin R) 0 units SC ACHS DAVEY PRN Reason: Protocol Last Admin: 08/13/17 13:29 Dose: 2 unit Metformin HCl (Glucophage) 500 mg PO [facility]ID[facility] Last Admin: 08/13/17 09:33 Dose: 500 mg Potassium Chloride (K-Dur 20 Meq Er Tab) 20 meq PO DAILY [facility] Last Admin: 08/13/17 09:32 Dose: 20 meq Valsartan (Diovan) 160 mg PO DAILY [facility] Last Admin: 08/13/17 09:32 Dose: 160 mg - Labs Labs: 08/13/17 05:30 08/13/17 05:30 - Constitutional Appears: Chronically Ill - Head Exam Head Exam: NORMAL INSPECTION - Eye Exam Eye Exam: PERRL - ENT Exam ENT Exam: Normal Exam - Neck Exam Neck Exam: Normal Inspection - Respiratory Exam Respiratory Exam: Decreased Breath Sounds - Cardiovascular Exam Cardiovascular Exam: REGULAR RHYTHM - GI/Abdominal Exam GI & Abdominal Exam: Soft, Normal Bowel Sounds - Extremities Exam Extremities Exam: Normal Inspection - Back Exam Back Exam: NORMAL INSPECTION - Neurological Exam Neurological Exam: Alert, Oriented x3 Additional comments: Obeys commands. - Psychiatric Exam Psychiatric exam: Anxious - Skin Skin Exam: Warm Assessment and Plan (1) Intractable hiccups Status: Acute (2) Diabetes mellitus with hyperglycemia Status: Acute
[2017-08-13] MEDS ORDERED: Sodium Chloride 0.9% 100 ML ONE (18:43)
[2017-08-13] MEDS ORDERED: Iodixanol 320 MG/ML 100 ML BOTTLE IV ONE (18:43)
--- NOTE | 2017-08-13 18:53 | CP.PCM.CON ---
History of Present Illness - History of Present Illness History of Present Illness: 51 Y/O ADMITTED WITH SOB. TODAY PTS BP WAS UNCONTROLLED. I WAS ASKED TO SEE PT FOR TREATMENT OF HTN. PT DENIES CP, OR LH. ADMITS TO SOB AND PALP. DENIES ORTHOPNEA, PND, ANA. PT DOES DRINK ETOH DAILY. EKG SHOW SINUS TACHYCARDIA. ECHO NML LVEF WITH G1 DIASTOLIC DYSFUNCTION Review of Systems - Constitutional Constitutional: As Per HPI. absent: Anorexia, Chills, Daytime Sleepiness, Excessive Sweating, Fatigue, Fever, Frequent Falls, Headache, Increased Appetite , Lethargy, Malaise, Night Sweats, Snoring, Sleep Apnea, Weight Gain, Weight Loss, Weakness, Other - EENT Eyes: As Per HPI. absent: Blind Spots, Blurred Vision, Change in Vision, Decreased Night Vision, Diplopia, Discharge, Dry Eye, Exophthalmos, Floaters, Irritation, Itchy Eyes, Loss of Peripheral Vision, Pain, Photophobia, Requires Corrective Lenses, Sees Flashes, Spots in Vision, Tunnel Vision, Other Visual Disturbances, Loss of Vision, Other Ears: As Per HPI. absent: Decreased Hearing, Ear Discharge, Ear Pain, Tinnitus , Abnormal Hearing, Disequilibrium, Dizziness, Other Nose/Mouth/Throat: As Per HPI. absent: Epistaxis, Nasal Congestion, Nasal Discharge, Nasal Obstruction, Nasal Trauma, Nose Pain, Post Nasal Drip, Sinus Pain, Sinus Pressure, Bleeding Gums, Change in Voice, Dental Pain, Dry Mouth, Dysphagia, Halitosis, Hoarsness, Lip Swelling, Mouth Lesions, Mouth Pain, Odynophagia, Sore Throat, Throat Swelling, Tongue Swelling, Facial Pain, Neck Pain, Neck Mass, Other - Cardiovascular Cardiovascular: Dyspnea, Palpitations. absent: As Per HPI, Acrocyanosis, Chest Pain, Chest Pain at Rest, Chest Pain with Activity, Claudication, Diaphoresis, Dyspnea on Exertion, Edema, Irregular Heart Rhythm, Pain Radiating to Arm/Neck/ Jaw, Leg Edema, Leg Ulcers, Lightheadedness, Orthopnea, Paroxysmal Nocturnal Dyspnea, Pedal Edema, Radiating Pain, Rapid Heart Rate, Slow Heart Rate, Syncope , Other - Respiratory Respiratory: As Per HPI. absent: Cough, Dyspnea, Hemoptysis, Dyspnea on Exertion, Wheezing, Snoring, Stridor, Pain on Inspiration, Chest Congestion, Excessive Mucous Production, Change in Mucous Color, Pain with Coughing, Other - Gastrointestinal Gastrointestinal: As Per HPI. absent: Abdominal Pain, Belching, Bloating, Change in Bowel Habits, Change in Stool Character, Coffee Ground Emesis, Constipation, Cramping, Diarrhea, Dyspepsia, Dysphagia, Early Satiety, Excessive Flatus, Fecal Incontinence, Heartburn, Hematemesis, Hematochezia, Loose Stools, Melena, Nausea, Odynophagia, Temesmus, Vomiting, Other - Genitourinary Genitourinary: As Per HPI. absent: Change in Urinary Stream, Difficulty Urinating, Dysuria, Flank Pain, Hematuria, Pyuria, Nocturia, Urinary Incontinence, Urinary Frequency, Urinary Hesitance, Urinary Urgency, Voiding Freq/Small Amts, Freq UTI, Hx Renal/Bladder Calculi, Hx /Renal Surgery, Bladder Distension, Other - Reproductive: Male Reproductive:Male: As Per HPI - Musculoskeletal Musculoskeletal: As Per HPI. absent: Abnormal Gait, Arthralgias, Atrophy, Back Pain, Deformity, Joint Swelling, Limited Range of Motion, Loss of Height, Muscle Cramps, Muscle Weakness, Myalgias, Neck Pain, Numbness, Radiating Pain into Limb, Stiffness, Tingling, Other - Integumentary Integumentary: As Per HPI. absent: Acne, Alopecia, Bleeding Lesions, Change in Hair, Change in Nails, Change in Pigmentation, Changing Lesions, Dry Skin, Erythema, Furuncle, Hirsutism, Lesions, New Lesions, Non-Healing Lesions, Photosensitivity, Pruritus, Rash, Skin Pain, Skin Ulcer, Sores, Striae, Swelling , Unusual Bruising, Wounds, Jaundice, Other - Neurological Neurological: As Per HPI. absent: Abnormal Gait, Abnormal Hearing, Abnormal Movements, Abnormal Speech, Behavioral Changes, Burning Sensations, Confusion, Convulsions, Disequilibrium, Dizziness, Numbness, Focal Weakness, Frequent Falls , Headaches, Lack of Coordination, Loss of Vision, Memory Loss, Paresthesias, Radicular Pain, Restless Legs, Sensory Deficit, Syncope, Tingling, Tremor, Vertigo, Weakness, Other Visual Disturbances, Other - Psychiatric Psychiatric: As Per HPI. absent: Abnormal Sleep Pattern, Anhedonia, Anxiety, Auditory Hallucinations, Behavioral Changes, Change in Appetite, Change in Libido, Confusion, Depression, Difficulty Concentrating, Hallucinations, Homicidal Ideation, Hopelessness, Irritability, Memory Loss, Mood Swings, Panic Attacks, Paranoia, Suicidal Ideation, Visual Hallucinations, Tactile Hallucinations, Other - Endocrine Endocrine: As Per HPI. absent: Change in Body Appearance, Change in Libido, Cold Intolorance, Deepening of Voice, Excessive Sweating, Fatigue, Flushing, Heat Intolorance, Increase in Ring/Shoe/Hat Size, Palpitations, Polydipsia, Polyphagia, Polyuria, Other - Hematologic/Lymphatic Hematologic: As Per HPI. absent: Easy Bleeding, Easy Bruising, Lymphadenopathy , Other Past Patient History - Past Medical History & Family History Past Medical History?: Yes - Past Social History Smoking Status: Light Smoker < 10 Cigarettes Daily Chewing Tobacco Use: No Cigar Use: No Alcohol: > 2 Drinks/Day Drugs: Denies Home Situation {Lives}: With Family - CARDIAC Hx Cardiac Disorders: Yes (HTN, high cholesterol) - PULMONARY Hx Respiratory Disorders: No - NEUROLOGICAL Hx Neurological Disorder: Yes Hx Dementia: Yes - HEENT Hx HEENT Problems: No - RENAL Hx Chronic Kidney Disease: No - ENDOCRINE/METABOLIC Hx Endocrine Disorders: Yes (DM) - HEMATOLOGICAL/ONCOLOGICAL Hx Blood Disorders: No - INTEGUMENTARY Hx Dermatological Problems: No - MUSCULOSKELETAL/RHEUMATOLOGICAL Hx Musculoskeletal Disorders: No - GASTROINTESTINAL Hx Gastrointestinal Disorders: No - GENITOURINARY/GYNECOLOGICAL Hx Genitourinary Disorders: No - PSYCHIATRIC Hx Psychophysiologic Disorder: No Hx Substance Use: No - SURGICAL HISTORY Hx Surgeries: No - ANESTHESIA Hx Anesthesia: No Meds Allergies/Adverse Reactions: Allergies Allergy/AdvReac Type Severity Reaction Status Date / Time No Known Allergies Allergy Verified 08/12/17 05:30 - Medications Medications: Current Medications Chlorpromazine (Thorazine) 25 mg IM Q6 PRN PRN Reason: Hiccups Last Admin: 08/13/17 15:51 Dose: 25 mg Insulin Human Regular (Humulin R) 0 units SC ACHS [facility] PRN Reason: Protocol Last Admin: 08/13/17 17:58 Dose: 2 unit Metformin HCl (Glucophage) 500 mg PO BIDWM [facility] Last Admin: 08/13/17 17:58 Dose: 500 mg Potassium Chloride (K-Dur 20 Meq Er Tab) 20 meq PO DAILY [facility] Last Admin: 08/13/17 09:32 Dose: 20 meq Valsartan (Diovan) 160 mg PO DAILY [facility] Last Admin: 04/05/18 09:32 Dose: 160 mg Physical Exam - Constitutional Appears: Non-toxic Additional comments: TREMULOUS - Head Exam Head Exam: ATRAUMATIC, NORMAL INSPECTION, NORMOCEPHALIC - Eye Exam Eye Exam: EOMI, Normal appearance, PERRL. absent: Conjunctival injection, Nystagmus, Periorbital swelling, Periorbital tenderness, Scleral icterus Pupil Exam: NORMAL ACCOMODATION, PERRL. absent: Fixed, Irregular, Miosis, Mydriatic, Unequal - ENT Exam ENT Exam: Mucous Membranes Moist, Normal Exam. absent: Mucous Membranes Dry, Normal External Ear Exam, Normal Oropharynx, TM's Normal Bilaterally - Neck Exam Neck exam: Positive for: Normal Inspection. Negative for: Full Rom, Lymphadenopathy, Meningismus, Tenderness, Thyromegaly - Respiratory Exam Respiratory Exam: Clear to Auscultation Bilateral, NORMAL BREATHING PATTERN. absent: Accessory Muscle Use, Chest Wall Tenderness, Decreased Breath Sounds, Prolonged Expiratory Phase, Rales, Rhonchi, Wheezes, Respiratory Distress, Stridor - Cardiovascular Exam Cardiovascular Exam: Tachycardia, REGULAR RHYTHM, +S1, +S2, Systolic Murmur. absent: Bradycardia, Clicks, Diastolic murmur, Gallop, Irregular Rhythm, JVD, RRR, Rubs, +S4 - GI/Abdominal Exam GI & Abdominal Exam: Normal Bowel Sounds, Soft. absent: Bruit, Diminished Bowel Sounds, Distended, Firm, Guarding, Hernia, Hyperactive Bowel Sounds, Hypoactive Bowel Sounds, Mass, Organomegaly, Pulsatile Mass, Rebound, Rigid, Tenderness - Rectal Exam Rectal Exam: Deferred - Extremities Exam Extremities exam: Positive for: normal inspection. Negative for: calf tenderness, full ROM, joint swelling, normal capillary refill, pedal edema, tenderness, pedal pulses present - Back Exam Back exam: NORMAL INSPECTION. absent: CVA tenderness (L), CVA tenderness (R), FULL ROM, muscle spasm, paraspinal tenderness, rash noted, tenderness, vertebral tenderness - Neurological Exam Neurological exam: Alert, CN II-XII Intact, Normal Gait, Oriented x3, Reflexes Normal Additional comments: TREMULOUS - Skin Skin Exam: Dry, Intact, Normal Color, Warm Results - Vital Signs Recent Vital Signs: Last Vital Signs Temp 97.9 F 08/13/17 16:10 Pulse 93 H 08/13/17 16:10 Resp 18 08/13/17 16:10 BP 147/84 04/05/18 16:10 Pulse Ox 97 08/13/17 16:10 - Labs Result Diagrams: 08/13/17 05:30 08/13/17 05:30 Labs: Laboratory Results - last 24 hr 08/13/17 08/13/17 08/13/17 00:06 00:44 05:10 WBC RBC Hgb Hct MCV MCH MCHC RDW Plt Count D-Dimer, Quantitative Sodium Potassium Chloride Carbon Dioxide Anion Gap BUN Creatinine Est GFR ( Amer) Est GFR (Non-Af Amer) POC Glucose (mg/dL) 154 H 156 H 156 H Random Glucose Hemoglobin A1c Calcium Total Bilirubin AST ALT Alkaline Phosphatase Troponin I Total Protein Albumin Globulin Albumin/Globulin Ratio Triglycerides Cholesterol LDL Cholesterol Direct HDL Cholesterol Thyroxine (T4) TSH 3rd Generation 08/13/17 08/13/17 08/13/17 05:30 05:30 05:30 WBC 5.2 RBC 3.85 L Hgb 14.2 Hct 40.7 MCV 105.9 H MCH 36.8 H MCHC 34.8 RDW 16.5 H Plt Count 103 L D-Dimer, Quantitative Sodium 136 Potassium 3.4 L Chloride 96 L Carbon Dioxide 25 Anion Gap 18 BUN 4 L Creatinine 0.7 L Est GFR ( Amer) > 60 Est GFR (Non-Af Amer) > 60 POC Glucose (mg/dL) Random Glucose 179 H Hemoglobin A1c 7.8 H Calcium 7.9 L Total Bilirubin 1.7 H AST 45 ALT 40 Alkaline Phosphatase 113 Troponin I Total Protein 7.5 Albumin 3.4 L Globulin 4.1 H Albumin/Globulin Ratio 0.8 L Triglycerides 161 H D Cholesterol 185 LDL Cholesterol Direct 129 HDL Cholesterol 35 Thyroxine (T4) 9.14 TSH 3rd Generation 2.38 08/13/17 08/13/17 08/13/17 10:57 11:18 11:35 WBC RBC Hgb Hct MCV MCH MCHC RDW Plt Count D-Dimer, Quantitative Sodium Potassium Chloride Carbon Dioxide Anion Gap BUN Creatinine Est GFR ( Amer) Est GFR (Non-Af Amer) POC Glucose (mg/dL) 269 H 227 H Random Glucose Hemoglobin A1c Calcium Total Bilirubin AST ALT Alkaline Phosphatase Troponin I < 0.0120 Total Protein Albumin Globulin Albumin/Globulin Ratio Triglycerides Cholesterol LDL Cholesterol Direct HDL Cholesterol Thyroxine (T4) TSH 3rd Generation 08/13/17 08/13/17 15:45 17:00 WBC RBC Hgb Hct MCV MCH MCHC RDW Plt Count D-Dimer, Quantitative 269 H Sodium Potassium Chloride Carbon Dioxide Anion Gap BUN Creatinine Est GFR ( Amer) Est GFR (Non-Af Amer) POC Glucose (mg/dL) 205 H Random Glucose Hemoglobin A1c Calcium Total Bilirubin AST ALT Alkaline Phosphatase Troponin I Total Protein Albumin Globulin Albumin/Globulin Ratio Triglycerides Cholesterol LDL Cholesterol Direct HDL Cholesterol Thyroxine (T4) TSH 3rd Generation - EKG Data EKG Interpreted by: Myself EKG shows normal: Sinus rhythm Rate: Tachycardia Assessment & Plan (1) Hypertensive urgency Status: Acute (2) SOB (shortness of breath) Status: Acute (3) Diabetes mellitus with hyperglycemia Status: Acute Priority: High (4) Alcohol abuse Status: Acute (5) Hyperlipidemia Status: Acute (6) Hypertension Status: Acute - Assessment and Plan (Free Text) Plan: ECHO REVEALS G1 DIASTOLIC DYSFUNCTION PTS BP AND HR ELEVATED THE ACUTE ELEVATION MAY BE DUE TO ETOH WITHDRAWAL. GIVEN TREMORS, WOULD CONSIDER TREATING FOR ETOH WITHDRAWAL. WILL START BID TOPROL XL BID NORVASC 5 CONTINUE [place] IF BP AND HR REMAIN ELEVATED TOMORROW THEN WOULD ADD CLONIDINE 0.1MG Q12. CHECK BNP AMG AND BMP
[2017-08-13] MEDS: Metoprolol Succinate 25 mg XL Tab PO SCH (21:39)
[2017-08-13 23:10] LABS: SQUAMOUS EPITHIAL < 1 /hpf (0-5); URINE BACTERIA RARE (<OCC); URINE BILIRUBIN NEGATIVE (NEGATIVE); URINE BLOOD NEGATIVE (NEGATIVE); URINE CLARITY SLIGHTY-CLOUDY (Clear); URINE COLOR YELLOW (YELLOW); URINE GLUCOSE (UA) >=500 mg/dL (Normal); URINE LEUKOCYTE ESTERASE NEG Leu/uL (Negative); URINE PROTEIN NEGATIVE (NEGATIVE); URINE UROBILINOGEN 0.2-1.0 mg/dL (0.2-1.0)
[2017-08-14] MEDS: Insulin Regular 100 units/ml SC SCH ×2 (06:53→13:01)
[2017-08-14 08:01] VITALS: BP 125/86; PULSE 87; RESP 19; TEMP 99.1; O2SAT 96
[2017-08-14] MEDS ORDERED: Enoxaparin 40 mg Syringe SC SCH (09:00)
[2017-08-14] MEDS: Potassium Chloride 20 mEq ER Tab PO SCH (09:50)
[2017-08-14] MEDS: Metoprolol Succinate 25 mg XL Tab PO SCH (09:50)
[2017-08-14 10:25] LABS: BLOOD UREA NITROGEN 7 mg/dl (9-20); CALCIUM 7.8 mg/dL (8.4-10.2); GFR AFRICAN-AMERICAN > 60; GFR NON-AFRICAN AMERICAN > 60
[2017-08-14 10:28] LABS: B-TYPE NATRIURETIC PEPTIDE 336 pg/ml (0-900)
--- NOTE | 2017-08-14 10:40 | CT ---
PROCEDURE: CTA HEAD AND NECK WITH CONTRAST HISTORY: r/o embolus COMPARISON: None available. TECHNIQUE: Initial noncontrast head CT was performed. Subsequently, CT angiogram of the head and neck were performed after the intravenous administration of 80 mL of Omnipaque 350. Contiguous 1.5mm thick images were obtained in the axial plane of the neck. 2-D coronal and sagittal MPR images were obtained. Imaging postprocessing was performed with 3-D images also obtained. A delayed contrast head CT was also obtained. This CT exam was performed using one or more of the following dose reduction techniques: Automated exposure control, adjustment of the mA and/or kV according to patient size, and/or use of iterative reconstruction technique. Contrast dose: 90 mL Visipaque 320 Radiation dose: Total exam DLP = 758.92 mGy-cm. FINDINGS: HEAD: Right: The intracranial internal carotid artery, and anterior and middle cerebral arteries are widely patent. Left: The intracranial internal carotid artery, and anterior and middle cerebral arteries are widely patent. Posterior circulation: The visualized intracranial vertebral arteries, basilar artery and posterior cerebral arteries are widely patent. There is origin of the right posterior cerebral artery, an anatomic variant. Ther is no endoluminal filling defect to suggest thrombus. There is no intracranial saccular aneurysm. NECK: There is a 2 vessel aortic arch with common origin of innominate and left common carotid arteries. There is no stenosis at the origins of the great vessels at the level of the aortic arch. There are calcified atherosclerotic plaques in the carotid bulbs and proximal internal carotid arteries. Right Carotid: On the right, the common carotid, internal carotid and external carotid arteries are widely patent. There is no hemodynamically significant stenosis in the internal carotid artery by NASCET criteria. Left Carotid: On the left, the common carotid, internal carotid and external carotid arteries are widely patent. There is no hemodynamically significant stenosis in the internal carotid artery by NASCET criteria. The vertebral arteries are widely patent. The left vertebral artery is hypoplastic, an anatomic variant. The visualized soft tissues of the neck are normal. The visualized brain and cervical spine are within normal limits. The lung apices are clear. IMPRESSION: No evidence of occlusion, endoluminal thrombus or definite significant stenosis. No evidence of hemodynamically significant stenosis in the internal carotid arteries.
[2017-08-14] MEDS ORDERED: Iodixanol 320 MG/ML 100 ML BOTTLE IV ONE (11:17)
--- NOTE | 2017-08-14 12:48 | CT ---
PROCEDURE: CT Chest with contrast (Pulmonary Angiogram) HISTORY: r/o PE, CP COMPARISON: None available. TECHNIQUE: Axial computed tomography images were obtained of the chest in the pulmonary arterial phase of enhancement. Coronal and sagittal reformatted images were created and reviewed. Maximum intensity projection (MIP) reconstructed images in the following planes: Three orthogonal projections Intravenous contrast dose: 95 cc Visipaque 320 Mean Hounsfield unit values in the main pulmonary artery: 262.41 Radiation dose: Total exam DLP = 481.55 mGy-cm. This CT exam was performed using one or more of the following dose reduction techniques: Automated exposure control, adjustment of the mA and/or kV according to patient size, and/or use of iterative reconstruction technique. FINDINGS: PULMONARY ARTERIES: Unremarkable. No pulmonary embolism. AORTA: No acute findings. No thoracic aortic aneurysm. LUNGS: Unremarkable. No nodule, mass or pulmonary consolidation. PLEURAL SPACES: Unremarkable. No effusion or pneuomothorax. HEART: Unremarkable. No cardiomegaly. No significant pericardial effusion. LYMPH NODES: No lymphadenopathy. BONES, CHEST WALL: Unremarkable. No fracture or destructive lesion OTHER FINDINGS: Unremarkable. IMPRESSION: Unremarkable CT pulmonary angiogram. No pulmonary embolus.
--- NOTE | 2017-08-14 13:05 | CARD ---
APPROVED REPORT EXAM: Two-dimensional and M-mode echocardiogram with Doppler and color Doppler. Other Information Quality : AverageRhythm : Tachycardia INDICATION Hypertension/HCVD 2D DIMENSIONS IVSd1.62 (0.7-1.1cm)LVDd3.82 (3.9-5.9cm) LVOT Diameter2.60 (1.8-2.4cm)PWd1.57 (0.7-1.1cm) IVSs1.31 (0.8-1.2cm)LVDs2.46 (2.5-4.0cm) FS (%) 35.6 %PWs1.85 (0.8-1.2cm) M-Mode DIMENSIONS Left Atrium (MM)5.00 (2.5-4.0cm)IVSd1.47 (0.7-1.1cm) Aortic Root3.34 (2.2-3.7cm)LVDd4.38 (4.0-5.6cm) Aortic Cusp Exc.2.06 (1.5-2.0cm)PWd1.50 (0.7-1.1cm) IVSs1.84 cmFS (%) 38 % LVDs2.72 (2.0-3.8cm)PWs1.78 cm Mitral Valve MV E Yjusrami39.2cm/sMV DECEL [id number] A Tsenetkq212.9cm/s MV SOS49boO/A ratio0.6MVA (PHT)2.65cm2 TDI Lateral E' Peak V6.84cm/sMedial E' Peak V6.60cm/sE/Lateral E'9.8 E/Medial E'10.2 Pulmonary Valve PV Peak Tzcrfegm870.8cm/s LEFT VENTRICLE The left ventricle is normal size. There is mild concentric left ventricular hypertrophy. The left ventricular function is normal. The left ventricular ejection fraction is 65% There is normal LV segmental wall motion. Transmitral Doppler flow pattern is Grade IV-fixed restrictive diastolic dysfunction. No left ventricle thrombus noted on this study. There is no ventricular septal defect visualized. There is no left ventricular aneurysm. There is no mass noted in the left ventricle. RIGHT VENTRICLE The right ventricle is normal size. There is normal right ventricular wall thickness. The right ventricular systolic function is normal. ATRIA The left atrium size is normal. The right atrium size is normal. The interatrial septum is intact with no evidence for an atrial septal defect. AORTIC VALVE The aortic valve is normal in structure. No aortic regurgitation is present. There is no aortic valvular stenosis. There is no aortic valvular vegetation. MITRAL VALVE The mitral valve is normal in structure. There is no evidence of mitral valve prolapse. There is no mitral valve stenosis. There is no mitral valve regurgitation noted. TRICUSPID VALVE The tricuspid valve is normal in structure. There is no tricuspid valve regurgitation noted. There is no tricuspid valve prolapse or vegetation. There is no tricuspid valve stenosis. PULMONIC VALVE The pulmonary valve is normal in structure. There is no pulmonic valvular regurgitation. There is no pulmonic valvular stenosis. GREAT VESSELS The aortic root is normal in size. The ascending aorta is normal in size. The IVC is normal in size and collapses >50% with inspiration. PERICARDIAL EFFUSION The pericardium appears normal. There is no pleural effusion. <Conclusion> Normal LV Systolic Function Concentric LVH Impaired Diastolic Relaxation
--- NOTE | 2017-08-14 16:37 | CP.PCM.DIS ---
Provider - Provider Date of Admission: 08/13/17 21:52 Attending physician: Yaw Mcmahan MD Diagnosis - Discharge Diagnosis (1) Intractable hiccups Status: Acute Priority: High (2) Diabetes mellitus with hyperglycemia Status: Acute Priority: High Hospital Course - Lab Results Lab Results: Micro Results 08/13/17 11:54 Blood Blood Culture - Preliminary NO GROWTH AFTER 24 HOURS 08/13/17 11:54 Blood Blood Culture - Preliminary NO GROWTH AFTER 24 HOURS Most Recent Lab Values WBC 5.2 K/uL (4.8-10.8) 08/13/17 05:30 RBC 3.85 Mil/uL (4.40-5.90) L 08/13/17 05:30 Hgb 14.2 g/dL (12.0-18.0) 08/13/17 05:30 Hct 40.7 % (35.0-51.0) 08/13/17 05:30 MCV 105.9 fl (80.0-94.0) H 08/13/17 05:30 MCH 36.8 pg (27.0-31.0) H 08/13/17 05:30 MCHC 34.8 g/dL (33.0-37.0) 08/13/17 05:30 RDW 16.5 % (11.5-14.5) H 08/13/17 05:30 Plt Count 103 K/uL (130-400) L 08/13/17 05:30 MPV 9.5 fl (7.2-11.7) 08/11/17 23:00 Neut % (Auto) 46.3 % (50.0-75.0) L 08/11/17 23:00 Lymph % (Auto) 41.6 % (20.0-40.0) H 08/11/17 23:00 [place] % (Auto) 10.8 % (0.0-10.0) H 08/11/17 23:00 Eos % (Auto) 0.5 % (0.0-4.0) 08/11/17 23:00 Baso % (Auto) 0.8 % (0.0-2.0) 08/11/17 23:00 Neut # (Auto) 3.7 K/uL (1.8-7.0) 08/11/17 23:00 Lymph # (Auto) 3.4 K/uL (1.0-4.3) 08/11/17 23:00 [place] # (Auto) 0.9 K/uL (0.0-0.8) H 08/11/17 23:00 Eos # (Auto) 0.0 K/uL (0.0-0.7) 08/11/17 23:00 Baso # (Auto) 0.1 K/uL (0.0-0.2) 08/11/17 23:00 D-Dimer, Quantitative 269 ng/mlDDU (0-230) H 08/13/17 17:00 Sodium 136 mmol/l (132-148) 08/14/17 09:30 Potassium 3.4 MMOL/L (3.6-5.0) L 08/14/17 09:30 Chloride 97 mmol/L (98-107) L 08/14/17 09:30 Carbon Dioxide 25 mmol/L (22-30) 08/14/17 09:30 Anion Gap 17 (10-20) 08/14/17 09:30 BUN 7 mg/dl (9-20) L 08/14/17 09:30 Creatinine 0.8 mg/dl (0.8-1.5) 08/14/17 09:30 Est GFR ( Amer) > 60 08/14/17 09:30 Est GFR (Non-Af Amer) > 60 08/14/17 09:30 POC Glucose (mg/dL) 192 mg/dL (65-110) H 08/14/17 15:29 Random Glucose 240 mg/dL (75-110) H 08/14/17 09:30 Hemoglobin A1c 7.8 % (4.2-6.5) H 08/13/17 05:30 Calcium 7.8 mg/dL (8.4-10.2) L 08/14/17 09:30 Magnesium 1.2 MG/DL (1.6-2.3) L 08/14/17 09:30 Total Bilirubin 1.7 mg/dl (0.2-1.3) H 08/13/17 05:30 AST 45 U/L (17-59) 08/13/17 05:30 ALT 40 U/L (21-72) 08/13/17 05:30 Alkaline Phosphatase 113 U/L (38-126) 08/13/17 05:30 Troponin I < 0.0120 ng/mL (0.00-0.120) 08/13/17 11:35 NT-Pro-B Natriuret Pep 336 pg/ml (0-900) 08/14/17 09:30 Total Protein 7.5 G/DL (6.3-8.2) 08/13/17 05:30 Albumin 3.4 g/dL (3.5-5.0) L 08/13/17 05:30 Globulin 4.1 gm/dL (2.2-3.9) H 08/13/17 05:30 Albumin/Globulin Ratio 0.8 (1.0-2.1) L 08/13/17 05:30 Triglycerides 161 mg/DL (0-149) H D 08/13/17 05:30 Cholesterol 185 mg/dL (0-199) 08/13/17 05:30 LDL Cholesterol Direct 129 mg/dL (0-129) 08/13/17 05:30 HDL Cholesterol 35 MG/DL (30-70) 08/13/17 05:30 Thyroxine (T4) 9.14 ug/dl (5.5-11.0) 08/13/17 05:30 TSH 3rd Generation 2.38 mIU/ML (0.46-4.68) 08/13/17 05:30 Urine Color Yellow (YELLOW) 08/13/17 22:57 Urine Clarity Slighty-cloudy (Clear) 08/13/17 22:57 Urine pH 8.0 (5.0-8.0) 08/13/17 22:57 Ur Specific Powers 1.013 (1.003-1.030) 08/13/17 22:57 Urine Protein Negative mg/dL (NEGATIVE) 08/13/17 22:57 Urine Glucose (UA) >=500 mg/dL (Normal) 08/13/17 22:57 Urine Ketones Negative mg/dL (NEGATIVE) 08/13/17 22:57 Urine Blood Negative (NEGATIVE) 08/13/17 22:57 Urine Nitrate Negative (NEGATIVE) 08/13/17 22:57 Urine Bilirubin Negative (NEGATIVE) 08/13/17 22:57 Urine Urobilinogen 0.2-1.0 mg/dL (0.2-1.0) 08/13/17 22:57 Ur Leukocyte Esterase Neg Lynda/uL (Negative) 08/13/17 22:57 Urine RBC (Auto) 2 /hpf (0-3) 08/13/17 22:57 Urine Microscopic WBC 1 /hpf (0-5) 08/13/17 22:57 Ur Squamous Epith Cells < 1 /hpf (0-5) 08/13/17 22:57 Urine Bacteria Rare (<OCC) 08/13/17 22:57 Discharge Exam - Head Exam Head Exam: NORMAL INSPECTION Discharge Plan - Discharge Medications Prescriptions: Valsartan [Diovan] 160 mg PO DAILY #30 tab metFORMIN [glucOPHAGE] 500 mg PO BIDWM #60 tab amLODIPine [Norvasc] 5 mg PO Q12 #60 tab Metoprolol Succinate [Toprol XL] 25 mg PO Q12 #60 tab - Follow Up Plan Condition: FAIR Disposition: HOME/ ROUTINE Instructions: Hiccups, Diabetes Diet Additional Instructions: follow up with your primary md 1 week. Referrals: Yaw Mcmahan MD [Staff Provider] - Mychal Resendez MD [Staff Provider] -
--- NOTE | 2017-08-14 16:44 | CP.PCM.PN ---
Subjective - Date & Time of Evaluation Date of Evaluation: 08/14/17 Time of Evaluation: 15:00 - Subjective Subjective: pt feels better. bp improved. mag level low Objective - Vital Signs/Intake and Output Vital Signs (last 24 hours): Temp Pulse Resp BP Pulse Ox 99.1 F 87 19 125/86 96 08/14/17 08:00 08/14/17 08:00 08/14/17 08:00 08/14/17 08:00 08/14/17 08:00 - Medications Medications: Current Medications Amlodipine Besylate (Norvasc) 5 mg PO Q12 [facility] Last Admin: 08/14/17 09:50 Dose: 5 mg Chlorpromazine (Thorazine) 25 mg IM Q6 PRN PRN Reason: Hiccups Enoxaparin Sodium (Lovenox) 40 mg SC DAILY [facility] PRN Reason: Protocol Last Admin: 08/14/17 13:01 Dose: 40 mg Insulin Human Regular (Humulin R) 0 units SC ACHS [facility] PRN Reason: Protocol Last Admin: 08/14/17 13:01 Dose: 2 unit Lorazepam (Ativan) 1 mg PO Q6 PRN PRN Reason: Restlessness Last Admin: 08/13/17 21:56 Dose: 1 mg Lorazepam (Ativan) 1 mg IVP Q6 PRN PRN Reason: Restlessness Metformin HCl (Glucophage) 500 mg PO BIDWM [facility] Last Admin: 08/14/17 09:50 Dose: 500 mg Metoprolol Succinate (Toprol Xl) 25 mg PO Q12 [facility] Last Admin: 08/14/17 09:50 Dose: 25 mg Potassium Chloride (K-Dur 20 Meq Er Tab) 20 meq PO DAILY [facility] Last Admin: 08/14/17 09:50 Dose: 20 meq Valsartan (Diovan) 160 mg PO DAILY [facility] Last Admin: 08/14/17 09:50 Dose: 160 mg - Labs Labs: 08/13/17 05:30 08/14/17 09:30 - Constitutional Appears: Well - Head Exam Head Exam: ATRAUMATIC, NORMAL INSPECTION, NORMOCEPHALIC - Eye Exam Eye Exam: EOMI, Normal appearance, PERRL. absent: Conjunctival injection, Nystagmus, Periorbital swelling, Periorbital tenderness, Scleral icterus Pupil Exam: NORMAL ACCOMODATION, PERRL - ENT Exam ENT Exam: Mucous Membranes Moist, Normal Exam. absent: Mucous Membranes Dry, Normal External Ear Exam, Normal Oropharynx, TM's Normal Bilaterally - Neck Exam Neck Exam: Full ROM, Normal Inspection. absent: Lymphadenopathy, Meningismus, Tenderness, Thyromegaly - Respiratory Exam Respiratory Exam: Clear to Ausculation Bilateral, NORMAL BREATHING PATTERN. absent: Accessory Muscle Use, Chest Wall Tenderness, Decreased Breath Sounds, Prolonged Expiratory Phase, Rales, Rhonchi, Wheezes, Respiratory Distress, Stridor - Cardiovascular Exam Cardiovascular Exam: REGULAR RHYTHM, +S1, +S2. absent: Bradycardia, Tachycardia , Clicks, Diastolic murmur, Gallop, Irregular Rhythm, JVD, RRR, Rubs, +S4, Murmur - GI/Abdominal Exam GI & Abdominal Exam: Soft, Normal Bowel Sounds - Extremities Exam Extremities Exam: Full ROM, Normal Capillary Refill, Normal Inspection. absent : Joint Swelling, Pedal Edema - Back Exam Back Exam: NORMAL INSPECTION. absent: CVA tenderness (L), CVA tenderness (R), Full ROM, muscle spasm, paraspinal tenderness, rash noted, tenderness, vertebral tenderness - Neurological Exam Neurological Exam: Alert, Awake, CN II-XII Intact, Normal Gait, Oriented x3. absent: Abnormal Gait, Altered, Motor Sensory Deficit, Reflexes Normal - Psychiatric Exam Psychiatric exam: Normal Affect, Normal Mood. absent: Agitated, Anxious, Depressed, Flat Affect, Homicidal Ideation, Manic, Suicidal Ideation - Skin Skin Exam: Dry, Intact, Normal Color, Warm. absent: Abrasion, Cyanosis, Diaphoretic, Erythema, Mottled, Pallor, Pallor, Petechiae, Rash, Urticaria, Vesicles Assessment and Plan (1) Hypertensive urgency Status: Acute (2) SOB (shortness of breath) Status: Acute (3) Diabetes mellitus with hyperglycemia Status: Acute (4) Alcohol abuse Status: Acute (5) Hyperlipidemia Status: Acute (6) Hypertension Status: Acute - Assessment and Plan (Free Text) Plan: bp stable, no tremors may repleat mag as outpt.
--- NOTE | 2017-08-14 18:16 | CARD ---
APPROVED REPORT EKG Measurement Heart [id number] <Conclusion> Sinus tachycardia Possible Anterior infarct, age undetermined Abnormal ECG
--- NOTE | 2017-08-14 18:18 | CARD ---
APPROVED REPORT EKG Measurement Heart [id number] [id number] <Conclusion> Sinus tachycardia Cannot rule out Anterior infarct, age undetermined Abnormal ECG
== END 2017-08-14 17:23 | disposition home or self-care (01) | DRG 750 ==
LOC: H.ER 20:51 → H.ERHOLD 08-12 05:40 → H.MEDSURG1 08-12 10:12 → OBSVTOIN 08-13 21:52
PROVIDERS: ADMIT Internal Medicine Pulmonary Disease; ATTEND Internal Medicine Pulmonary Disease
DX: F10.231 Alcohol dependence with withdrawal delirium (principal); E11.65 Type 2 diabetes mellitus with hyperglycemia; F03.90 Unspecified dementia, unspecified severity, without behavioral disturbance, psychotic disturbance, mood disturbance, and anxiety; I16.0 Hypertensive urgency; E78.00 Pure hypercholesterolemia, unspecified; E78.5 Hyperlipidemia, unspecified; Z91.14 Patient's other noncompliance with medication regimen; F17.210 Nicotine dependence, cigarettes, uncomplicated; R06.6 Hiccough; Y90.9 Presence of alcohol in blood, level not specified